=== PATIENT | female | born 1935 | race Caucasian/White ===

== ENCOUNTER 2017-01-02 07:35 | Emergency (ER) | payer MEDICARE ==
[2017-01-02 08:22] VITALS: BP 138/62
--- NOTE | 2017-01-02 08:30 | UC ---
Lower Extremity/Ankle HPI - HPI Summary HPI Summary: PATIENT IS A 81YO WHO PRESENTS TO WITH CC OF RIGHT LEG EDEMA, REDNESS AND WARMTH. SHE HAD BALLOON ANGIOSPLASTY PERFORMED ON THE RIGHT FEMORAL ARTERY ON D/T CLAUDICATION. ANOTHER BALLOON ANGIOPLASTY AGAIN ON 12/15 ON THE LEFT FEMORAL ARTERY. BOTH OCCURRED WITHOUT COMPLICATIONS. SHE STATES IMMEDIATELY AFTER SURGERY, SHE WAS ABLE TO WALK WITHOUT PAIN, HOWEVER SHE DEVELOPED EDEMA IN THE RIGHT LOWER EXTREMITY EXTENDING TO THE MID-CALF. HER SURGEON STATED THAT WAS A NORMAL RESPONSE AFTER SURGERY AND PRESCRIBED 25MG HYDROCHLOROTHIAZIDE. THE EDEMA DID NOT REDUCE WITH THE MEDICATION. SHE ARRIVES TODAY D/T LAST EVENING SHE DEVELOPED REDNESS AND WARMTH AND WAS CONCERNED OVER CELLULITIS. SHE REMAINS ON BABY ASPIRIN DAILY. SHE DENIES BEDREST S/P SURGERY. SHE IS NOT ON OTHER BLOOD THINNERS AND CONTINUES TO DENY PAIN IN THE RIGHT CALF. SHE HAS NO HISTORY OF DVT'S. PMHx INCLUDES COPD TO WHICH SHE TAKES SYMBICORT. SHE DENIES USE OF STOCKINGS OR COMPRESSION SOCKS. DENIES FEVER OR MALAISE. OTHERWISE FEELING WELL AND HEALTHY. - History of Current Complaint Chief Complaint: UCLowerExtremity Stated Complaint: LEG COMPLAINT Time Seen by Provider: 01/02/17 08:08 Hx Obtained From: Patient Hx Last Menstrual Period: post menopaus ?: No Onset/Duration: Sudden Onset Severity Initially: Mild Severity Currently: Mild Pain Intensity: 0 Pain Scale Used: 0-10 Numeric Aggravating Factor(s): Nothing Alleviating Factor(s): Nothing Able to Bear Weight: Yes - Risk Factors Gout Risk Factors: Age Over 40, Hyperlipidemia, Peripherial Vascular Disease DVT Risk Factors: Recent Surgery Septic Arthritis Risk Factor: Extremes of Age - Allergies/Home Medications Allergies/Adverse Reactions: Allergies Allergy/AdvReac Type Severity Reaction Status Date / Time Cilostazol Allergy Itching Verified 01/02/17 08:03 Home Medications: Home Medications Hydrochlorothiazide [Microzide-] 01/02/17 [History] PMH/Surg Hx/FS Hx/Imm Hx Previously Healthy: No - HTN, ASHTMA, COPD Endocrine History Of: Reports: Thyroid Disease Denies: Diabetes Cardiovascular History Of: Reports: Hypertension Denies: Cardiac Disorders, Pacemaker/ICD Respiratory History Of: Reports: COPD - emphysema, Asthma, Bronchitis - NONE [id number], WITH "COLD" USUALLY GETS IT GI/ History Of: Denies: Ulcer, Renal Disease Cancer History Of: Denies: Breast Cancer - Surgical History Surgical History: Yes Surgery Procedure, Year, and Place: hysterectomy,fx right hip REPLACEMENT 2010. baloon angioplasty in November; I and D December 15 - Family History Known Family History: Positive: Cardiac Disease, Hypertension - Social History Occupation: Retired Lives: Alone Alcohol Use: Daily Alcohol Amount: 2-3 DRINKS/WEEK Substance Use Type: None Smoking Status (MU): Former Smoker Type: Cigarettes Amount Used/How Often: 1PPD 40 + YEARS Have You Smoked in the Last Year: No When Did the Patient Quit Smoking/Using Tobacco: 1998 - Immunization History Most Recent Influenza Vaccination: 2013 Most Recent Tetanus Shot: unknown Most Recent Pneumonia Vaccination: 2013 Review of Systems Constitutional: Negative Skin: Other - ERYTHEMA, SWELLING AND WARMTH OVER RIGHT LOWER EXTREMITY WITHOUT PAIN OR CLAUDICATION. Eyes: Negative Respiratory: Negative Cardiovascular: Negative Motor: Negative Neurovascular: Negative Musculoskeletal: Negative Neurological: Negative All Other Systems Reviewed And Are Negative: Yes Physical Exam Triage Information Reviewed: Yes Appearance: Well-Appearing, Well-Nourished Vital Signs: Initial Vital Signs Temp 97.7 F 01/02/17 07:55 Pulse 79 01/02/17 07:55 Resp 16 01/02/17 07:55 BP 138/62 01/02/17 07:55 Pulse Ox 98 01/02/17 07:55 Vital Signs Reviewed: Yes Eye Exam: Normal Eyes: Positive: Conjunctiva Clear Neck exam: Normal Neck: Positive: Supple, No Lymphadenopathy Respiratory Exam: Normal Respiratory: Positive: Chest non-tender, Lungs clear Cardiovascular Exam: Normal Cardiovascular: Positive: RRR Musculoskeletal Exam: Normal Musculoskeletal: Positive: Strength Intact Neurological Exam: Normal Neurological: Positive: Alert Psychological Exam: Normal Psychological: Positive: Normal Response To Family Skin: Positive: Other - ERYTHEMA, WARMTH, EDEMA THROUGHOUT RIGHT LOWER EXTREMITY WITHOUT PAIN OR CLAUDICATION. Lower Extremity Course/Dx - Course Course Of Treatment: ERYTHEMA, WARMTH, EDEMA THROUGHOUT RIGHT LOWER EXTREMITY WITHOUT PAIN OR CLAUDICATION. EDEMA PRESENT IMMEDIATELY S/P SURGERY ON 12/09 AND REMAINS. YESTERDAY DEVELOPED WARMTH AND REDNESS OVER AREA. PATIENT REMAINS ON BABY ASPIRIN AND WAS MOBILE IMMEDIATELY FOLLOWING SURGERY. DENIES PREVIOUS DVT'S AND DENIES PAIN IN CALF OR CLAUDICATION. LOW SUSPICIAN FOR DVT, ALTHOUGH THIS WAS DISCUSSED WITH PATIENT A POSSIBILITY. SHE HAS NOT BEEN USING COMPRESSION STOCKINGS AND HAS HAD A FOLLOW UP WITH SURGERY AFTER ANGIOPLASTY WHO STATED EDEMA WAS NORMAL S/P PROCEDURE. DENIES FEVER. BLOOD WORK NOT OBTAINED D/T AFEBRILE AND FEELING WELL. WILL TREAT FOR POSSIBLE CELLULITIS WITH KEFLEX AND CLOSE FOLLOW UP WITH PCP ON WEDNESDAY MORNING FOR FURTHER EVALUATION. PATIENT IS OK WITH PLAN AND OK FOR DISCHARGE. - Differential Dx/Diagnosis Differential Diagnosis/HQI/PQRI: Cellulitis, DVT, Infection, Phlebitis Provider Diagnoses: LOWER EXTREMITY EDEMA; CELLULITIS Discharge - Discharge Plan Condition: Stable Disposition: HOME Prescriptions: Cephalexin CAP* [Keflex CAP*] 500 mg PO QID #28 cap Patient Education Materials: Cellulitis (ED), Edema (ED) Referrals: Gustavo Wells MD [Primary Care Provider] - Additional Instructions: Follow up with PCP on Wednesday. If you develop fevers, fatigue, pain in the leg, feeling ill or worsening swelling, redness, drainage or red streaking up from the calf, come back to or go to the ED immediately. Obtain compression socks. Elevate legs as much as possible. Continue with all your medications as prescribed.
== END 2017-01-02 08:30 | disposition home or self-care (01) ==
LOC: UCEAST 07:35
DX: R60.0 Localized edema (principal); L03.115 Cellulitis of right lower limb; B96.89 Other specified bacterial agents as the cause of diseases classified elsewhere
CPT/HCPCS: 99212; G0463

== ENCOUNTER 2017-06-24 07:57 | Emergency (ER) | payer MEDICARE ==
[2017-06-24] MEDS ORDERED: Albuterol 2.5 MG/3 ML NEB.SOL* (0.083%) INH ONE (08:52)
[2017-06-24] MEDS ORDERED: Ipratropium 0.5MG/2.5ML NEB* 0.5 MG/2.5 ML NEB.SOLN INH ONE (08:52)
[2017-06-24 09:20] VITALS: BP 135/63
--- NOTE | 2017-07-09 09:15 | UC ---
Evelio Sims Thomas, scribed for Karina Tucker DO on 06/24/17 at 0843 . Respiratory Complaint HPI - HPI Summary HPI Summary: The pt is an 82 y/o F with a Hx of COPD presenting to [facility] c/o a cough with green production that began yesterday. She has pain with coughing. The cough is aggravated by nothing and is alleviated by nothing. 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 She is on Spiriva and Albuterol. Pt additionally c/o chronic postnasal drip. Pt denies SOB, CP, sinus congestion, ear pain, sore throat, N/V, abd pain, dysuria, recent falls, confusion, and rashes. Pt denies recent falls or confusion. She has not needed to take steroids for her COPD. - History of Current Complaint Chief Complaint: UCRespiratory Stated Complaint: CONGESTION Hx Obtained From: Patient Hx Last Menstrual Period: post menopaus Onset/Duration: Lasting Days - 1, Still Present Timing: Constant Character: Cough: Productive - green Aggravating Factors: Nothing Alleviating Factors: Nothing Associated Signs And Symptoms: Negative: Dyspnea, Fever - Allergies/Home Medications Allergies/Adverse Reactions: Allergies Allergy/AdvReac Type Severity Reaction Status Date / Time Cilostazol Allergy Itching Verified 01/02/17 08:03 PMH/Surg Hx/FS Hx/Imm Hx Previously Healthy: No Endocrine History: Thyroid Disease Cardiovascular History: Cardiac Disease, Hypertension Other Cardiovascular History: PVD Respiratory History: COPD Psychological History: Anxiety - Surgical History Surgical History: Yes Surgery Procedure, Year, and Place: hysterectomy,fx right hip REPLACEMENT 2010. baloon angioplasty in November; I and D December 15 - Family History Known Family History: Positive: Cardiac Disease, Hypertension - Social History Alcohol Use: Daily Alcohol Amount: 2-3 DRINKS/WEEK Substance Use Type: None Smoking Status (MU): Former Smoker Type: Cigarettes Amount Used/How Often: 1PPD 40 + YEARS Have You Smoked in the Last Year: No When Did the Patient Quit Smoking/Using Tobacco: 1998 - Immunization History Most Recent Influenza Vaccination: 05/02 Most Recent Tetanus Shot: unknown Most Recent Pneumonia Vaccination: 2013 Review of Systems Constitutional: Other - NEGATIVE: fever ENT: Other - Chronic postnasal drip. Respiratory: Cough Is Patient Immunocompromised?: No All Other Systems Reviewed And Are Negative: Yes Physical Exam Triage Information Reviewed: Yes Appearance: Well-Appearing, No Pain Distress, Well-Nourished Vital Signs: Initial Vital Signs Temp 97.9 F 06/24/17 08:02 Pulse 76 06/24/17 08:02 Resp 18 06/24/17 08:02 BP 144/54 06/24/17 08:02 Pulse Ox 96 06/24/17 08:02 Vital Signs Reviewed: Yes Eyes: Positive: Conjunctiva Clear. Negative: Discharge ENT: Positive: Hearing grossly normal. Negative: Muffled voice Neck exam: Normal Neck: Positive: Supple Respiratory: Positive: No respiratory distress, No accessory muscle use, Other: - She has diffuse tight wheezing. Cardiovascular: Positive: RRR, No Murmur Musculoskeletal Exam: Normal Neurological: Positive: Alert, Muscle Tone Normal Psychological Exam: Normal Psychological: Positive: Age Appropriate Behavior Skin Exam: Normal Skin: Positive: Other - Warm, dry, normal color UC Diagnostic Evaluation - Laboratory O2 Sat by Pulse Oximetry: 96 Re-Evaluation - Re-Evaluation First Eval Re-Evaluation Time: 09:32 Change: Improved Comment: She is satting 95. Wheezing is improved but not completely resolved. Respiratory Course/Dx - Course Course Of Treatment: Medications reviewed this visit. High blood pressure noted. - Differential Dx/Diagnosis Provider Diagnoses: COPD exacerbation, bronchitis, elevated blood pressure under poor control Discharge - Discharge Plan Condition: Stable Disposition: HOME Prescriptions: DOXYcycline CAP(*) [DOXYcycline 100MG CAP(*)] 100 mg PO BID #20 cap predniSONE TAB* [Deltasone TAB*] 40 mg PO DAILY #10 tab Patient Education Materials: Acute Bronchitis (ED), COPD (Chronic Obstructive Pulmonary Disease) (ED) Referrals: Gustavo Wells MD [Primary Care Provider] - 1 Day Additional Instructions: DOXYCYCLINE: Doxycycline (Vibramycin, Doryx) is an antibiotic of the tetracycline family. This type of drug is useful for infections of the respiratory tract and genital tract, and is sometimes used for intestinal infections. Unlike most tetracyclines, doxycycline can be taken with food. It is longer acting, and (usually) less prone to side effects than regular tetracycline. Tetracycline antibiotics can stain immature teeth and SHOULD NOT BE TAKEN BY CHILDREN, NURSING MOTHERS, OR WOMEN. Tetracyclines can make you more prone to sunburn. Abdominal cramping, nausea, and diarrhea are occasional side effects. Women may experience vaginal yeast infections. Call the doctor at once if you develop hives, itching, shortness of breath , or lightheadedness. DISCUSSED, DOXY ALSO INCREASES YOUR RISK OF SUNBURN. COVER UP WHEN YOU GO OUTSIDE. ANYTIME YOU TAKE AN ANTIBIOTIC, IT IS IMPORTANT TO REPLENISH THE BODY'S SUPPLY OF "GOOD BACTERIA." YOU CAN GET GOOD BACTERIA FROM HIGH QUALITY CULTURED FOODS SUCH LOCAL YOGURT, SOUR KRAUT, FABIANO CAROL, NATURALLY FERMENTED PICKLES AND PROBIOTIC DRINKS. YOU CAN ALSO GET GOOD BACTERIA FROM A PROBIOTIC SUPPLEMENT. CORTICOSTEROID MEDICATION: You have been given a medicine of the cortisone class. This medication is used to control inflammation or allergy. It is usually only given for a short period of time, until the acute process subsides. There are usually no side effects from short-term use of cortisone-like medications. Some persons feel an increased sense of well-being and are not sleepy at bedtime. Long-term use of cortisone medications is best avoided, unless required for a severe condition. If your condition does not remit, or relapses after the course of corticosteroid medication, you should consult your physician. Contact the physician if you develop lightheadedness, black or tarry stools , swelling of the legs, or significant rapid change in weight. INHALED BRONCHODILATORS:YOU CAN USE THIS MED EVERY 4 HOURS WHILE AWAKE FOR SHORTNESS OF BREATH AND WHEEZING You have received a prescription for an inhaled bronchodilator -- a medication which stimulates the airways in the lung to dilate. This improves the flow of air in asthma, bronchitis, and emphysema. These medicines have some similarity to adrenaline, and can cause similar side effects: shakiness, racing heart, and a sense of nervousness. These side effects decrease with time. Contact your doctor if these side effects are severe. Do not over-use the medicine. Too-frequent use of the inhaler may make it ineffective. Call your doctor if the inhaler is not controlling your symptoms at the prescribed doses. Your blood pressure was elevated at this visit. That does not mean you have hypertension, it is probably due to your current condition. Please follow up with your primary care provider. The documentation as recorded by the Evelio acevedo Thomas accurately reflects the service I personally performed and the decisions made by me, Karina Tucker DO.
== END 2017-06-24 09:50 | disposition home or self-care (01) ==
LOC: UCEAST 07:57
DX: J44.1 Chronic obstructive pulmonary disease with (acute) exacerbation (principal); R03.0 Elevated blood-pressure reading, without diagnosis of hypertension; E07.9 Disorder of thyroid, unspecified; I10 Essential (primary) hypertension; I73.9 Peripheral vascular disease, unspecified; F41.9 Anxiety disorder, unspecified; Z90.710 Acquired absence of both cervix and uterus; Z96.641 Presence of right artificial hip joint; Z87.891 Personal history of nicotine dependence
CPT/HCPCS: 99212; G0463; J7644

== ENCOUNTER 2017-11-18 08:03 | Emergency (ER) | payer MEDICARE ==
[2017-11-18 08:11] VITALS: BP 138/67
[2017-11-18] MEDS ORDERED: Albuterol/Ipratropium NEB.SOL* Albuterol 2.5 MG/Ipratropium 0.5 MG 3 ML INH ONE (08:12)
[2017-11-18] MEDS ORDERED: Albuterol/Ipratropium NEB.SOL* Albuterol 2.5 MG/Ipratropium 0.5 MG 3 ML ONE (08:12)
[2017-11-18] MEDS ORDERED: methylPREDNISolone 125 MG* 2 ML VIAL IV ONE (08:14)
--- NOTE | 2017-11-18 08:30 | UC ---
Respiratory Complaint HPI - HPI Summary HPI Summary: 82 yo WF h/o COPD/emphysema, hypothyroidism, HTN p/w worsening dyspnea x 2 days in associated with cough with yellow green sputum, NOT on home 02, thinks her baseline is in low 90's, denies f/c but feels that she is becoming " more tired " - History of Current Complaint Chief Complaint: UCRespiratory Stated Complaint: SHORTNESS OF BREATH Time Seen by Provider: 11/18/17 08:11 Hx Obtained From: Patient Hx Last Menstrual Period: post menopaus ?: No Onset/Duration: Lasting Days, Lasting Weeks, Still Present Severity Initially: Moderate Severity Currently: Moderate Pain Intensity: 0 Character: Cough: Productive Alleviating Factors: Bronchodilator Associated Signs And Symptoms: Positive: Dyspnea - Allergies/Home Medications Allergies/Adverse Reactions: Allergies Allergy/AdvReac Type Severity Reaction Status Date / Time cilostazol Allergy Itching Verified 11/18/17 08:05 Home Medications: Home Medications Hydrochlorothiazide TAB* [Hydrodiuril TAB*] 1 tab PO DAILY 11/18/17 [History Confirmed 11/18/17] PMH/Surg Hx/FS Hx/Imm Hx Previously Healthy: No Endocrine History: Hypothyroidism Cardiovascular History: Hypertension Respiratory History: COPD - Surgical History Surgical History: Yes Surgery Procedure, Year, and Place: hysterectomy,fx right hip REPLACEMENT 2010. baloon angioplasty in November; I and D December 15 - Family History Known Family History: Positive: Cardiac Disease, Hypertension - Social History Alcohol Use: Daily Alcohol Amount: 2-3 DRINKS/WEEK Substance Use Type: None Smoking Status (MU): Former Smoker Type: Cigarettes Amount Used/How Often: 1PPD 40 + YEARS Have You Smoked in the Last Year: No When Did the Patient Quit Smoking/Using Tobacco: 1998 - Immunization History Most Recent Influenza Vaccination: 05/02 Most Recent Tetanus Shot: unknown Most Recent Pneumonia Vaccination: 2013 Review of Systems Constitutional: Negative Skin: Negative Eyes: Negative ENT: Negative Respiratory: Shortness Of Breath, Cough Cardiovascular: Negative Gastrointestinal: Negative Genitourinary: Negative Motor: Negative Neurovascular: Negative Musculoskeletal: Negative Neurological: Negative Psychological: Negative All Other Systems Reviewed And Are Negative: Yes Physical Exam Triage Information Reviewed: Yes Vital Signs: Initial Vital Signs Temp 37.6 C 11/18/17 08:08 Pulse 95 11/18/17 08:08 Resp 26 11/18/17 08:08 BP 138/67 04/05/18 08:08 Pulse Ox 87 11/18/17 08:08 Eye Exam: Normal ENT Exam: Normal Dental Exam: Normal Neck exam: Normal Neck: Positive: 1 Respiratory: Positive: Decreased breath sounds. Negative: Crackles, Rhonchi, Stridor Cardiovascular Exam: Normal Abdominal Exam: Normal Musculoskeletal Exam: Normal Neurological Exam: Normal Psychological Exam: Normal Skin Exam: Normal UC Diagnostic Evaluation - Laboratory O2 Sat by Pulse Oximetry: 87 Respiratory Course/Dx - Course Course Of Treatment: Per nurse pt was 86% on RA on arrrival, O2sat improved on 2L to 99%, Duoneb and solumedrol administered and ambulance called to take pt to ED for acute COPD exacerbation and acute hypoxia, further evaluation and intervention. Discussed case with Dr Navarro in ED and is aware pt is coming - Differential Dx/Diagnosis Differential Diagnosis/HQI/PQRI: Bronchitis, Exacerbation Of COPD, Lower Resp Infection Provider Diagnoses: Hypoxia. COPD exacerbation Discharge - Sign-Out/Discharge Documenting (check all that apply): Discharge - Discharge Plan Condition: Guarded Disposition: [facility] Patient Education Materials: COPD (Chronic Obstructive Pulmonary Disease) (ED) Referrals: Gustavo Wells MD [Primary Care Provider] - Additional Instructions: Go to ER [place], called ambulance - Billing Disposition and Condition Condition: GUARDED Disposition: EMTALA
== END 2017-11-18 08:25 | disposition short-term general hospital (02) ==
LOC: UCEAST 08:03
DX: R09.02 Hypoxemia (principal); J44.1 Chronic obstructive pulmonary disease with (acute) exacerbation; E03.9 Hypothyroidism, unspecified; I10 Essential (primary) hypertension; Z96.641 Presence of right artificial hip joint; Z88.8 Allergy status to other drugs, medicaments and biological substances; Z87.891 Personal history of nicotine dependence
CPT/HCPCS: 96372; 96374; 99213; A9270-GY; G0463; J2930

== ENCOUNTER 2017-11-18 08:43 | Emergency (ER) | payer MEDICARE ==
[2017-11-18] MEDS ORDERED: Albuterol/Ipratropium NEB.SOL* Albuterol 2.5 MG/Ipratropium 0.5 MG 3 ML INH ONE (09:23)
[2017-11-18 09:42] LABS: ABS Basophils 0 10^3/ul (0-0.2); ABS Eosinophils 0.1 10^3/ul (0-0.6); ABS Lymphocytes 0.7 10^3/ul (1.0-4.8); ABS Monocytes 0.7 10^3/ul (0-0.8); ABS Neutrophils 6.4 10^3/ul (1.5-7.7); ABS Nucleated RBC 0 10^3/ul; Eosinophil % 1.8 % (0-6); Hematocrit 35 % (35-47); Lymphocyte % 8.3 % (25-47); Mean Corpuscular HGB Conc 34 g/dl (31-36); Mean Corpuscular Hemoglobin 34 pg (27-31); Mean Corpuscular Volume 100 fL (80-97); Mean Platelet Volume 7.3 um3 (7.4-10.4); Nucleated Red Blood Cells % 0.1; Platelet Count 211 10^3/ul (150-450); Red Blood Count 3.53 10^6/ul (4.0-5.4); Red Cell Distribution Width 13 % (10.5-15)
--- NOTE | 2017-11-18 09:54 | RAD ---
Indication: Shortness of breath. Comparison is made with previous exam dated June 19, 2014. 2 views of the chest and shape no mediastinal shift. Hyperinflated lung hankins are noted. No evidence of alveolar consolidation is noted. Chronic changes are noted in the lung bases. IMPRESSION: No definite pneumonia is identified.
[2017-11-18 10:05] LABS: EGFR Non-African American 51.6 (>60)
[2017-11-18] MEDS ORDERED: DOXYcycline CAP(*) 100 MG PO ONE (11:10)
[2017-11-18 11:50] VITALS: BP 126/62
--- NOTE | 2017-11-23 12:19 | ED ---
Jonathan Sims Stephanie, scribed for Tarik Navarro MD on 11/18/17 at 0927 . Shortness of Breath - HPI Summary HPI Summary: The pt is an 82 y/o F presenting to the ED with c/o SOB that began on 11/17/17 at 21:00. Symptoms include productive cough (green/yellow sputum) and chills. The pt denies CP. The pts states she had to use him home O2 which made her feel better. The pt went to today where Dr. Lu administered albuterol and solumedrol. - History of Current Complaint Chief Complaint: EDShortnessOfBreath Time Seen by Provider: 11/18/17 08:52 Hx Obtained From: Patient Onset/Duration: Gradual Onset, Lasting Days - 1, Still Present Timing: Constant Current Severity: Mild Dyspnea At: Exertion Aggrevating Factors: Movement Alleviating Factors: Bronchodilators Associated Signs & Symptoms: Cough (Productive) - green/yellow sputum, Chills - Allergy/Home Medications Allergies/Adverse Reactions: Allergies Allergy/AdvReac Type Severity Reaction Status Date / Time cilostazol Allergy Itching Verified 11/18/17 08:05 Home Medications: Home Medications Alendronate (NF) [Fosamax (NF)] 70 mg PO WEEKLY 11/18/17 [History Confirmed 12/31] Atorvastatin* [Lipitor*] 40 mg PO DAILY 11/18/17 [History Confirmed 11/18/17] Levothyroxine TAB* [Synthroid TAB*] 50 mcg PO DAILY 11/18/17 [History Confirmed 11/18/17] Losartan TAB* [Cozaar TAB*] 100 mg PO DAILY 11/18/17 [History Confirmed 11/18/17 ] Tiotropium CAP.INH* [Spiriva CAP.INH*] 1 cap.inh INH DAILY 11/18/17 [History Confirmed 11/18/17] amLODIPine TAB* [Norvasc 5 mg TAB*] 10 mg PO DAILY 11/18/17 [History Confirmed 11/18/17] PMH/Surg Hx/FS Hx/Imm Hx Endocrine/Hematology History: Reports: Hx Thyroid Disease Denies: Hx Diabetes Cardiovascular History: Reports: Hx Angina, Hx Hypertension, 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 Denies: Hx Pacemaker/ICD Comment Only: Other Cardiovascular Problems/Disorders - hyperlipidemia Respiratory History: Reports: Hx Asthma, 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 baloon angioplasty in November; I and D December 15 Hx Anesthesia Reactions: No - Immunization History Date of Tetanus Vaccine: pt unable to state Date of Influenza Vaccine: pt unable to state Infectious Disease History: No Infectious Disease History: Reports: Hx Shingles Denies: Hx Clostridium Difficile, Hx Hepatitis, Hx Human Immunodeficiency Virus (HIV), Hx of Known/Suspected MRSA, Hx Tuberculosis, Hx Known/Suspected VRE , Hx Known/Suspected VRSA, History Other Infectious Disease, Traveled Outside the [place] in Last 30 Days - Family History Known Family History: Positive: Cardiac Disease, Hypertension - Social History Occupation: Retired Lives: With Family Alcohol Use: Daily Alcohol Amount: 2-3 DRINKS/WEEK Hx Substance Use: No Substance Use Type: Reports: None Hx Tobacco Use: Yes Smoking Status (MU): Former Smoker Type: Cigarettes Amount Used/How Often: 1PPD 40 + YEARS Have You Smoked in the Last Year: No Review of Systems Positive: Chills. Negative: Fever Negative: Erythema Negative: Sore Throat Negative: Chest Pain Positive: Shortness Of Breath, Cough Negative: Abdominal Pain, Vomiting, Nausea Negative: dysuria, hematuria Negative: Myalgia, Edema Negative: Rash Neurological: Other - Negative: dizziness All Other Systems Reviewed And Are Negative: Yes Physical Exam - Summary Physical Exam Summary: Constitutional: Well-developed, Well-nourished, Alert. (-) Distressed Skin: Warm, Dry HENT: Normocephalic; Atraumatic Eyes: Conjunctiva normal Neck: Musculoskeletal ROM normal neck. (-) JVD, (-) Stridor, (-) Tracheal deviation Cardio: Rhythm regular, rate normal, Heart sounds normal; Intact distal pulses; The pedal pulses are 2+ and symmetric. Radial pulses are 2+ and symmetric. (-) Murmur Pulmonary/Chest wall: Effort normal. (-) Respiratory distress, (-) Wheezes, (-) Rales, diminished breath sounds Abd: Soft, (-) Tenderness, (-) Distension, (-) Guarding, (-) Rebound Musculoskeletal: (-) Edema Lymph: (-) Cervical adenopathy Neuro: Alert, Oriented x3 Psych: Mood and affect Normal Triage Information Reviewed: Yes Vital Signs On Initial Exam: Initial Vitals Temp Pulse Resp BP Pulse Ox 98.9 F 85 17 143/58 91 11/18/17 09:00 11/18/17 09:00 11/18/17 09:00 11/18/17 09:00 11/18/17 09:00 Vital Signs Reviewed: Yes Diagnostics - Vital Signs Vital Signs Temp Pulse Resp BP Pulse Ox 11/18/17 09:00 98.9 F 85 17 143/58 91 - Laboratory Lab Results: Lab Results 11/18/17 11/18/17 11/18/17 Range/Units 09:25 09:25 09:25 WBC 8.0 (3.5-10.8) 10^3/ul RBC 3.53 L (4.0-5.4) 10^6/ul Hgb 12.0 (12.0-16.0) g/dl Hct 35 (35-47) % MCV 100 H (80-97) fL MCH 34 H (27-31) pg MCHC 34 (31-36) g/dl RDW 13 (10.5-15) % Plt Count 211 (150-450) 10^3/ul MPV 7.3 L (7.4-10.4) um3 Neut % (Auto) 80.6 (38-83) % Lymph % (Auto) 8.3 L (25-47) % [place]range % (Auto) 8.9 H (0-7) % Eos % (Auto) 1.8 (0-6) % Baso % (Auto) 0.4 (0-2) % Absolute Neuts (auto) 6.4 (1.5-7.7) 10^3/ul Absolute Lymphs (auto) 0.7 L (1.0-4.8) 10^3/ul Absolute Monos (auto) 0.7 (0-0.8) 10^3/ul Absolute Eos (auto) 0.1 (0-0.6) 10^3/ul Absolute Basos (auto) 0 (0-0.2) 10^3/ul Absolute Nucleated RBC 0 10^3/ul Nucleated RBC % 0.1 Sodium 136 L (139-145) mmol/L Potassium 4.4 (3.5-5.0) mmol/L Chloride 102 (101-111) mmol/L Carbon Dioxide 24 (22-32) mmol/L Anion Gap 10 (2-11) mmol/L BUN 25 H (6-24) mg/dL Creatinine 1.02 H (0.51-0.95) mg/dL Est GFR ( Amer) 66.4 (>60) Est GFR (Non-Af Amer) 51.6 (>60) BUN/Creatinine Ratio 24.5 H (8-20) Glucose 106 H (70-100) mg/dL Lactic Acid 0.9 (0.5-2.0) mmol/L Calcium 9.9 (8.6-10.3) mg/dL Total Bilirubin 0.70 (0.2-1.0) mg/dL AST 15 (13-39) U/L ALT 12 (7-52) U/L Alkaline Phosphatase 42 (34-104) U/L Troponin I 0.00 (<0.04) ng/mL Total Protein 6.9 (6.4-8.9) g/dL Albumin 3.9 (3.2-5.2) g/dL Globulin 3.0 (2-4) g/dL Albumin/Globulin Ratio 1.3 (1-3) Result Diagrams: 11/18/17 09:25 11/18/17 09:25 Lab Statement: Any lab studies that have been ordered have been reviewed, and results considered in the medical decision making process. - Radiology CXR Xray Interpretation: No Acute Changes Radiology Interpretation Completed By: Radiologist - No definite pneumonia is identified. ED physician has reviewed this report. - EKG 09:05 Cardiac Rate: NL EKG Rhythm: Sinus Rhythm - 80 BPM EKG Interpretation: No STEMI Re-Evaluation - Re-Evaluation First Eval Re-Evaluation Time: 11:12 Change: Unchanged - The pts SOB resolved after nebulizer treatment. ED physician informed her she needs supplemental O2 however, the pt does not want to stay in hospital. ED physician informed the pt that the O2 company will not honor ED recommendations for O2. The pt states she wants her PCP to arrange O2. ED physician sent abx prescriptions to pharmacy. Course/Dx - Course Course Of Treatment: At 11:04, ED physician spoke to Dr. Hunt. The pts SOB resolved after nebulizer treatment. ED physician informed her she needs supplemental O2 however, the pt does not want to stay in hospital. ED physician informed the pt that the O2 company will not honor ED recommendations for O2. The pt states she wants her PCP to arrange O2. ED physician sent abx prescriptions to pharmacy. - Diagnoses Provider Diagnoses: COPD exacerbation, Hypoxemia - Physician Notifications Discussed Care of Patient With: Dara Hunt - Plan to admit as inpatient for supplemental O2. Time Discussed With Above Provider: 11:04 - Critical Care Time Critical Care Time: 30-74 min - 35 min CCT Discharge - Sign-Out/Discharge Documenting (check all that apply): Discharge - Discharge Plan Condition: Stable Disposition: AGAINST MEDICAL ADVICE Prescriptions: DOXYcycline CAP(*) [DOXYcycline 100MG CAP(*)] 100 mg PO BID #14 cap predniSONE TAB* [Deltasone TAB*] 50 mg PO DAILY #5 tab Referrals: Gustavo Wells MD [Primary Care Provider] - - Billing Disposition and Condition Condition: STABLE Disposition: AMA The documentation as recorded by the Jonathan acevedo Stephanie accurately reflects the service I personally performed and the decisions made by , Tarik Navarro MD.
== END 2017-11-18 11:45 | disposition left against medical advice (07) ==
LOC: ED 08:43
DX: J44.1 Chronic obstructive pulmonary disease with (acute) exacerbation (principal); R09.02 Hypoxemia; R05 Cough; R06.02 Shortness of breath; Z87.891 Personal history of nicotine dependence; E03.9 Hypothyroidism, unspecified; I10 Essential (primary) hypertension; Z96.641 Presence of right artificial hip joint
CPT/HCPCS: 36415; 71046; 80053; 83605; 84484; 85025; 87040; 93005; 94640; 99282; A9270-GY

== ENCOUNTER 2018-06-20 09:43 | Emergency (ER) | payer MEDICARE ==
[2018-06-20 10:05] VITALS: BP 130/60
--- NOTE | 2018-06-20 10:39 | UC ---
Lower Extremity/Ankle HPI - HPI Summary HPI Summary: 83-year-old woman comes in today with a chief complaint of right leg swelling. She noticed it this morning. She does have a right hip replacement which was done about 2 years ago. She also reports some vascular procedure in her right leg at one time. 2 days ago she had sudden onset of pain in the right upper thigh hip area. The pain was quite bad she's had a hard time walking the walking made the pain worse. The pain continued yesterday but gradually improved. She took acetaminophen and she wasn't sure if that helped or not. This morning when she woke up she noticed the right leg was swollen. The right upper leg hip area pain is minimal at this time. The lower leg does not hurt she has no numbness or paresthesias. No prior histories of blood clots. The right lower leg is a little bit red which is more than the left leg. No fevers or chills feels well otherwise. - History of Current Complaint Chief Complaint: UCLowerExtremity Stated Complaint: LEG SWELLING Time Seen by Provider: 06/20/18 10:19 Hx Last Menstrual Period: post menopaus Pain Intensity: 4 - Allergies/Home Medications Allergies/Adverse Reactions: Allergies Allergy/AdvReac Type Severity Reaction Status Date / Time cilostazol Allergy Itching Verified 06/20/18 10:05 PMH/Surg Hx/FS Hx/Imm Hx Endocrine History: Hypothyroidism - Surgical History Surgical History: Yes Surgery Procedure, Year, and Place: hysterectomy,fx right hip REPLACEMENT 2010. baloon angioplasty in November; I and D December 15 - Family History Known Family History: Positive: Cardiac Disease, Hypertension - Social History Alcohol Use: Daily Alcohol Amount: 2-3 DRINKS/WEEK Substance Use Type: None Smoking Status (MU): Former Smoker Type: Cigarettes Amount Used/How Often: 1PPD 40 + YEARS Have You Smoked in the Last Year: No When Did the Patient Quit Smoking/Using Tobacco: 1998 - Immunization History Most Recent Influenza Vaccination: 05/02 Most Recent Tetanus Shot: unknown Most Recent Pneumonia Vaccination: 2013 Review of Systems Constitutional: Negative Skin: Rash Eyes: Negative ENT: Negative Respiratory: Negative Cardiovascular: Negative Gastrointestinal: Negative Motor: Negative Neurovascular: Negative Musculoskeletal: Other: - SEE HPI Neurological: Negative Psychological: Negative Is Patient Immunocompromised?: No All Other Systems Reviewed And Are Negative: Yes Physical Exam Triage Information Reviewed: Yes Appearance: Well-Appearing, No Pain Distress, Well-Nourished Vital Signs: Initial Vital Signs Temp 97.8 F 06/20/18 10:02 Pulse 76 06/20/18 10:02 Resp 16 06/20/18 10:02 BP 130/60 06/20/18 10:02 Pulse Ox 98 06/20/18 10:02 Vital Signs Reviewed: Yes Eye Exam: Normal Neck exam: Normal Neck: Positive: Supple Respiratory Exam: Normal Respiratory: Positive: Lungs clear, Normal breath sounds, No respiratory distress Cardiovascular: Positive: RRR Musculoskeletal: Positive: Strength Intact, ROM Intact, Other: - The right leg has some edema them early in the lower leg and into the foot. There is more edema in the right leg than the left leg. The left leg just has a trace of edema in the foot. The calf is nontender to palpation in the knee has full range of motion of the hip has full range of motion and they're all nontender to palpation. Normal capillary refill normal pulses dorsalis pedis and posterior tibials. Neurological: Positive: Alert, Muscle Tone Normal Psychological Exam: Normal Psychological: Positive: Normal Response To Family, Age Appropriate Behavior Skin: Positive: Other - Both lower extremity is are mildly erythematous the right lower extremity is more erythematous than the left. The skin is not hot to touch. No skin break found. Lower Extremity Course/Dx - Course Course Of Treatment: Order Information: HIP RIGHT 2 VIEWS AND PELVIS. Accession Number: [id number]. CPT: 95045. INDICATION: Right hip pain. COMPARISON: Correlation is made with a prior x-ray study of the right hip from February 022010 and prior intraoperative study of the right hip from February 02, 2011. TECHNIQUE: An AP view of the pelvis and frontal and lateral views of the right hip were. obtained. FINDINGS: There is an old impacted right subcapital femoral neck fracture which appears. healed. There are 3 surgical screws spanning the fracture site. No acute fracture is seen. There is mild to moderate bilateral osteoarthritic change in the hips. IMPRESSION: 1. MILD TO MODERATE BILATERAL OSTEOARTHRITIC CHANGE IN THE HIPS. 2. OLD RIGHT SUBCAPITAL FEMORAL NECK FRACTURE AND POSTSURGICAL CHANGES. . <Electronically signed by Jesse Mcginnis MD in [facility]> 06/20/18 1128. Order Information: VL LOWER EXT VEINS RIGHT. Accession Number: [id number]. CPT: 46259. Indication: Right leg edema. Duplex Doppler sonography of the deep venous system of the right lower extremity deep. venous system was performed. Bilaterally the common femoral veins appear patent and compressible. Right proximal. greater saphenous vein, proximal deep femoral vein, femoral vein, popliteal vein,. posterior tibial veins and peroneal veins appear patent and compressible. IMPRESSION: NO EVIDENCE OF DEEP VENOUS THROMBOSIS IS IDENTIFIED. . <Electronically signed by Shasta Weaver MD in [facility]> 06/20/18 1118. I discussed the results of the ultrasound and x-ray with the patient and her . There is good pulses normal capillary refill rolled the pain in the hip is minimal. There is no pain in the lower extremity. The plan now is to rest and elevate the leg as needed. I also follow-up with primary care doctor. We discussed if there was any evidence of loss of circulation or pain to the legs needs to get reevaluated right away. - Differential Dx/Diagnosis Provider Diagnoses: RIGHT THIGH AND HIP PAIN. RIGHT LEG EDEMA Discharge - Sign-Out/Discharge Documenting (check all that apply): Patient Departure All imaging exams completed and their final reports reviewed: Yes - Discharge Plan Condition: Stable Disposition: HOME Patient Education Materials: Hip Pain (ED), Leg Edema (ED) Referrals: Gustavo Wells MD [Primary Care Provider] - Additional Instructions: FOLLOW UP WITH YOUR DOCTOR. GET RECHECKED FOR ANY WORSENING OF YOUR CONDITION; LEG PAIN, LOSS OF BLOOD CIRCULATION, NUMBNESS, WEAKNESS OR QUESTIONS OR CONCERNS. - Billing Disposition and Condition Condition: STABLE Disposition: Home
== END 2018-06-20 11:59 | disposition home or self-care (01) ==
LOC: UCEAST 09:43
DX: M79.651 Pain in right thigh (principal); M25.551 Pain in right hip; M16.0 Bilateral primary osteoarthritis of hip; R60.0 Localized edema; Z88.8 Allergy status to other drugs, medicaments and biological substances; Z96.641 Presence of right artificial hip joint; Z87.891 Personal history of nicotine dependence
CPT/HCPCS: 99211; G0463

== ENCOUNTER 2018-07-02 07:30 | Emergency (ER) | payer MEDICARE ==
[2018-07-02 07:45] VITALS: BP 117/49
[2018-07-02] MEDS ORDERED: Albuterol 2.5 MG/3 ML NEB.SOL* (0.083%) INH ONE (08:01)
--- NOTE | 2018-07-02 08:08 | UC ---
Respiratory Complaint HPI - HPI Summary HPI Summary: History of COPD, with onset of cough and chest tightness 2 days ago, with mild sore throat and low grade fever. Comes because at such times she responds to use of antibiotic and oral steroid. Last albuterol was this morning, but has not used her nebulizer. O2 sat here is 91-92%, but she declines albuterol and having a chest xray. Does use inhaled steroid, bronchodilator and nebulizer at home. - History of Current Complaint Chief Complaint: UCGeneralIllness Stated Complaint: CONGESTION, PRODUCTIVE COUGH Time Seen by Provider: 07/02/18 07:59 Hx Obtained From: Patient Hx Last Menstrual Period: post menopaus Onset/Duration: Gradual Onset, Lasting Days - 3 Timing: Constant Severity Initially: Moderate Severity Currently: Moderate Pain Intensity: 0 Character: Cough: Nonproductive Aggravating Factors: Exertion, Deep Breaths Alleviating Factors: Bronchodilator Associated Signs And Symptoms: Positive: Fever, Nasal Congestion, Sinus Discomfort - Risk Factors Pulmonary Embolism Risk Factors: Negative Cardiac Risk Factors: Hypertension Pseudomonas Risk Factors: Negative Tuberculosis Risk Factors: Negative - Allergies/Home Medications Allergies/Adverse Reactions: Allergies Allergy/AdvReac Type Severity Reaction Status Date / Time cilostazol Allergy Itching Verified 07/02/18 07:46 Home Medications: Home Medications Albuterol 2.5MG/3ML (0.083%)* [Ventolin 2.5 MG/3 ML NEB.PAGIE*] 2.5 mg INH Q4H PRN 07/02/18 [History Confirmed 07/02/18] Albuterol HFA INHALER* [Ventolin HFA Inhaler*] 2 puff INH Q4H PRN 07/02/18 [ History Confirmed 07/02/18] PMH/Surg Hx/FS Hx/Imm Hx Previously Healthy: No Cardiovascular History: Hypertension Respiratory History: COPD - Surgical History Surgical History: Yes Surgery Procedure, Year, and Place: hysterectomy,fx right hip REPLACEMENT 2010. baloon angioplasty in November; I and D December 15 - Family History Known Family History: Positive: Cardiac Disease, Hypertension - Social History Occupation: Retired Alcohol Use: Weekly Alcohol Amount: 2-3 DRINKS/WEEK Substance Use Type: None Smoking Status (MU): Former Smoker Type: Cigarettes Amount Used/How Often: 1PPD 40 + YEARS Have You Smoked in the Last Year: No When Did the Patient Quit Smoking/Using Tobacco: 1998 - Immunization History Most Recent Influenza Vaccination: 05/02 Most Recent Tetanus Shot: unknown Most Recent Pneumonia Vaccination: 2013 Review of Systems All Other Systems Reviewed And Are Negative: Yes Constitutional: Positive: Fever, Fatigue Skin: Positive: Negative Eyes: Positive: Negative ENT: Positive: Sore Throat Respiratory: Positive: Shortness Of Breath, Cough Cardiovascular: Positive: Negative Gastrointestinal: Positive: Negative Genitourinary: Positive: Negative Motor: Positive: Negative Neurovascular: Positive: Negative Musculoskeletal: Positive: Negative Neurological: Positive: Negative Psychological: Positive: Negative Is Patient Immunocompromised?: No Physical Exam Triage Information Reviewed: Yes Appearance: No Pain Distress, Well-Nourished, Ill-Appearing - breathing comfortably on room air, looks chronically unwell Vital Signs: Initial Vital Signs Temp 99.4 F 07/02/18 07:41 Pulse 78 07/02/18 07:41 Resp 20 07/02/18 07:41 BP 117/49 07/02/18 07:41 Pulse Ox 92 07/02/18 07:41 Eyes: Positive: Conjunctiva Clear ENT: Positive: Pharynx normal, TMs normal Neck: Positive: Supple, Nontender, No Lymphadenopathy Respiratory Exam: Other - No tachypnea, indrawing or sternomastoid use. Respiratory: Positive: Decreased breath sounds, Wheezing - throughout both lung hankins. Abdomen Description: Positive: Nontender, No Organomegaly, Soft Bowel Sounds: Positive: Present Musculoskeletal Exam: Other - kyphotic chest wall Neurological: Positive: Alert Psychological Exam: Normal Skin Exam: Normal UC Diagnostic Evaluation - Laboratory O2 Sat by Pulse Oximetry: 92 Respiratory Course/Dx - Course Course Of Treatment: doxy and oral steroid for exacerbation of COPD - Differential Dx/Diagnosis Differential Diagnosis/HQI/PQRI: Asthma, Exacerbation Of COPD, Laryngitis, Lower Resp Infection, Sinusitis Provider Diagnoses: exacerbation of COPD Discharge - Sign-Out/Discharge Documenting (check all that apply): Patient Departure All imaging exams completed and their final reports reviewed: No Studies - Discharge Plan Condition: Stable Disposition: HOME Prescriptions: DOXYcycline CAP(*) [DOXYcycline 100MG CAP(*)] 100 mg PO BID #14 cap predniSONE [Deltasone 20 MG TAB] 2 tab PO DAILY #10 tablet Patient Education Materials: COPD (Chronic Obstructive Pulmonary Disease) (ED) Referrals: Priscilla,Gustavo, MD [Primary Care Provider] - Additional Instructions: Begin use of doxycycline as an antibiotic for treatment of bronchitis and COPD. Ensure that you stay well hydrated, and use acetaminophen for any fever or discomfort. Please use an albuterol nebulizer on your return home to bring up your oxygen saturation. If you have worsening shortness of breath, please go to the emergency room for evaluation. - Billing Disposition and Condition Condition: STABLE Disposition: Home
== END 2018-07-02 08:26 | disposition home or self-care (01) ==
LOC: UCEAST 07:30
DX: J44.1 Chronic obstructive pulmonary disease with (acute) exacerbation (principal); I10 Essential (primary) hypertension; Z87.891 Personal history of nicotine dependence
CPT/HCPCS: 99212; G0463

== ENCOUNTER 2018-08-18 07:07 | Emergency (ER) | payer MEDICARE ==
[2018-08-18 07:18] VITALS: BP 137/66
--- NOTE | 2018-08-18 07:35 | UC ---
Respiratory Complaint HPI - HPI Summary HPI Summary: 83-year-old woman comes to clinic today with chief complaint of cough chest congestion and yellow and green sputum. She's had upper respiratory tract infection symptoms for several days. This morning she started bringing up green sputum. She has COPD and she uses inhalers at home which do help with the shortness of breath and chest congestion. Shortness of breath is mild. No recent fevers. No chest pain no edema. Asked the patient if she was worried about her heart she denies any concerns of heart issues at this time. - History of Current Complaint Chief Complaint: UCRespiratory Stated Complaint: CONGESTION Time Seen by Provider: 08/18/18 07:24 Hx Last Menstrual Period: post menopaus Pain Intensity: 3 - Allergies/Home Medications Allergies/Adverse Reactions: Allergies Allergy/AdvReac Type Severity Reaction Status Date / Time cilostazol Allergy Itching Verified 08/18/18 07:18 Home Medications: Home Medications Tiotropium CAP.INH* [Spiriva CAP.INH*] 1 cap.inh INH DAILY 08/18/18 [History Confirmed 08/18/18] PMH/Surg Hx/FS Hx/Imm Hx Previously Healthy: Yes Endocrine History: Hypothyroidism, Dyslipidemia Cardiovascular History: Hypertension Respiratory History: COPD - Surgical History Surgical History: Yes Surgery Procedure, Year, and Place: hysterectomy,fx right hip REPLACEMENT 2010. baloon angioplasty in November; I and D December 15 - Family History Known Family History: Positive: Cardiac Disease, Hypertension - Social History Alcohol Use: Weekly Alcohol Amount: 2-3 DRINKS/WEEK Substance Use Type: None Smoking Status (MU): Former Smoker Type: Cigarettes Amount Used/How Often: 1PPD 40 + YEARS Have You Smoked in the Last Year: No When Did the Patient Quit Smoking/Using Tobacco: 1998 - Immunization History Most Recent Influenza Vaccination: 05/02 Most Recent Tetanus Shot: unknown Most Recent Pneumonia Vaccination: 2013 Review of Systems All Other Systems Reviewed And Are Negative: Yes Constitutional: Positive: Negative Skin: Positive: Negative Eyes: Positive: Negative ENT: Positive: Sore Throat, Nasal Discharge, Sinus Congestion Respiratory: Positive: Shortness Of Breath, Cough Cardiovascular: Positive: Negative Gastrointestinal: Positive: Negative Motor: Positive: Negative Neurovascular: Positive: Negative Musculoskeletal: Positive: Negative Neurological: Positive: Negative Psychological: Positive: Negative Is Patient Immunocompromised?: No Physical Exam Triage Information Reviewed: Yes Appearance: No Pain Distress, Well-Nourished, Ill-Appearing - mild Vital Signs: Initial Vital Signs Temp 98.7 F 08/18/18 07:14 Pulse 84 08/18/18 07:14 Resp 18 08/18/18 07:14 BP 137/66 08/18/18 07:14 Pulse Ox 89 08/18/18 07:14 Vital Signs Reviewed: Yes Eye Exam: Normal Eyes: Positive: Conjunctiva Clear ENT: Positive: Pharyngeal erythema, Nasal congestion, Nasal drainage, TMs normal Neck exam: Normal Neck: Positive: Supple Respiratory: Positive: Lungs clear, Normal breath sounds, No respiratory distress Cardiovascular: Positive: RRR Musculoskeletal Exam: Normal Musculoskeletal: Positive: Strength Intact, ROM Intact, No Edema Neurological Exam: Normal Neurological: Positive: Alert, Muscle Tone Normal Psychological Exam: Normal Psychological: Positive: Normal Response To Family, Age Appropriate Behavior Skin Exam: Normal UC Diagnostic Evaluation - Laboratory O2 Sat by Pulse Oximetry: 89 Respiratory Course/Dx - Course Course Of Treatment: Due to the patient's age history of COPD and green sputum production I will start antibiotics. I discussed antibiotics with the patient and she says doxycycline helps her. She will continue with her breathing treatments. I emphasized that if she has any worsening she needs to get reevaluated most likely in the emergency department. Her initial O2 sat read as 89%. Patient is not short of breath on examination. Recheck is 91%. Follow -up with primary care doctor reevaluate if worsening. - Differential Dx/Diagnosis Provider Diagnosis: Bronchitis Discharge - Sign-Out/Discharge Documenting (check all that apply): Patient Departure All imaging exams completed and their final reports reviewed: No Studies - Discharge Plan Condition: Stable Disposition: HOME Prescriptions: DOXYcycline CAP(*) [DOXYcycline 100MG CAP(*)] 100 mg PO BID #20 cap Patient Education Materials: Acute Bronchitis (ED), COPD (Chronic Obstructive Pulmonary Disease) (ED) Referrals: Gustavo Wells MD [Primary Care Provider] - Additional Instructions: FOLLOW UP WITH YOUR DOCTOR. GO TO THE EMERGENCY DEPARTMENT FOR ANY WORSENING OF YOUR CONDITION; CHEST PAIN, SHORTNESS OF BREATH, YOU FEEL ILL, WEAKNESS OR QUESTIONS OR CONCERNS. - Billing Disposition and Condition Condition: STABLE Disposition: Home
== END 2018-08-18 07:42 | disposition home or self-care (01) ==
LOC: UCEAST 07:07
DX: J40 Bronchitis, not specified as acute or chronic (principal); I10 Essential (primary) hypertension; J44.9 Chronic obstructive pulmonary disease, unspecified; Z87.891 Personal history of nicotine dependence; Z88.8 Allergy status to other drugs, medicaments and biological substances
CPT/HCPCS: 99212; G0463

== ENCOUNTER 2019-01-06 08:44 | Emergency (ER) | payer MEDICARE ==
--- NOTE | 2019-01-06 10:18 | UC ---
Respiratory Complaint HPI - HPI Summary HPI Summary: 83-year-old female who has a history of COPD she is not presently a smoker. She states over the last 3 weeks she has had a productive cough of white sputum however the past few days and has turned yellow. She denies any shortness of breath or difficulty breathing. - History of Current Complaint Chief Complaint: UCRespiratory Stated Complaint: RESP COMPLAINT Time Seen by Provider: 01/06/19 09:55 Hx Obtained From: Patient Hx Last Menstrual Period: post menopaus ?: No Onset/Duration: Gradual Onset Timing: Intermittent Episodes Severity Initially: Mild Severity Currently: Mild Pain Intensity: 0 Character: Cough: Productive - Effective cough of white sputum for 3 weeks and now yellow. Aggravating Factors: Nothing Alleviating Factors: Nothing Associated Signs And Symptoms: Positive: Chills - Allergies/Home Medications Allergies/Adverse Reactions: Allergies Allergy/AdvReac Type Severity Reaction Status Date / Time cilostazol Allergy Itching Verified 01/06/19 08:56 PMH/Surg Hx/FS Hx/Imm Hx Previously Healthy: Yes Endocrine History: Thyroid Disease Cardiovascular History: Hypertension Respiratory History: COPD, Asthma - Surgical History Surgical History: Yes Surgery Procedure, Year, and Place: hysterectomy,fx right hip REPLACEMENT 2010. baloon angioplasty in November; I and D December 15 - Family History Known Family History: Positive: Cardiac Disease, Hypertension - Social History Alcohol Use: Weekly Alcohol Amount: 2-3 DRINKS/WEEK Substance Use Type: None Smoking Status (MU): Former Smoker Type: Cigarettes Amount Used/How Often: 1PPD 40 + YEARS Have You Smoked in the Last Year: No When Did the Patient Quit Smoking/Using Tobacco: 1998 - Immunization History Most Recent Influenza Vaccination: 05/02 Most Recent Tetanus Shot: unknown Most Recent Pneumonia Vaccination: 2013 Review of Systems All Other Systems Reviewed And Are Negative: Yes Constitutional: Positive: Chills Respiratory: Positive: Cough - Productive cough of white sputum for 3 weeks and now yellow sputum. Is Patient Immunocompromised?: No Physical Exam Triage Information Reviewed: Yes Appearance: Well-Appearing, No Pain Distress, Well-Nourished Vital Signs: Initial Vital Signs Temp 97.5 F 01/06/19 08:53 Pulse 76 01/06/19 08:53 Resp 16 01/06/19 08:53 BP 137/57 01/06/19 08:53 Pulse Ox 94 01/06/19 08:53 Vital Signs Reviewed: Yes Eye Exam: Normal ENT: Positive: Hearing grossly normal, Pharynx normal, TMs normal, Uvula midline Neck: Positive: Supple, Nontender, No Lymphadenopathy Respiratory: Positive: Lungs clear, Normal breath sounds - Loose moist cough, no distress, No respiratory distress, No accessory muscle use Cardiovascular: Positive: RRR, No Murmur, Pulses Normal, Brisk Capillary Refill Abdomen Description: Positive: Nontender, Soft Bowel Sounds: Positive: Present Musculoskeletal Exam: Normal Neurological Exam: Normal Psychological Exam: Normal Skin Exam: Normal Respiratory Course/Dx - Course Course Of Treatment: Chest x-ray:FINDINGS: The heart is within normal limits in size. Mediastinal and hilar contours appear within normal limits. There is a small 5 mm nodular density which projects over the right upper lobe which appears unchanged from the prior study. The lungs are hyperinflated. There is a small infiltrate at the right lung base. No pleural effusion is seen. IMPRESSION: 1. SMALL RIGHT BASILAR INFILTRATE. 2. STABLE RIGHT UPPER LOBE PULMONARY NODULE. 3. COPD. Patient has been comfortable here and she is in no distress. I'm going to start her on doxycycline which she has had before in the past. I would like her to follow up with her primary care provider on Wednesday for recheck and deathly coming into the weekend if she has any worsening symptoms she is to go to the emergency room. The patient is agreeable with this plan of action. I did advise her not to eat or drink dairy products, antacids or multivitamins 2 hours before and 2 hours after she takes doxycycline but to definitely take with food. - Differential Dx/Diagnosis Provider Diagnosis: CAP (community acquired pneumonia) Discharge - Sign-Out/Discharge Documenting (check all that apply): Patient Departure All imaging exams completed and their final reports reviewed: Yes - Discharge Plan Condition: Fair Disposition: HOME Prescriptions: DOXYcycline CAP(*) [DOXYcycline 100MG CAP(*)] 100 mg PO DAILY 7 Days #14 cap Patient Education Materials: Pneumonia (ED) Referrals: Gustavo Wells MD [Primary Care Provider] - Additional Instructions: Increase fluids, do not eat or drink any dairy products, antacids or multivitamins 2 hours before you take the doxycycline and 2 hours after you take the doxycycline however you do need to take it with food. I would like you to make an appointment with your primary care provider for a recheck next week Wednesday or Wednesday. If you develop any worsening symptoms, difficulty breathing, chest pain your to go to the emergency room. - Billing Disposition and Condition Condition: FAIR Disposition: Home
[2019-01-06 11:06] VITALS: BP 133/65
--- NOTE | 2019-01-06 11:39 | UC ---
- Progress Note Progress Note: The prescription was corrected to doxycycline 100 mg by mouth twice a day 7 days. The pharmacy called about that and it was changed. Course/Dx - Diagnoses Provider Diagnoses: CAP (community acquired pneumonia) Discharge - Sign-Out/Discharge Documenting (check all that apply): Post-Discharge Follow Up All imaging exams completed and their final reports reviewed: Yes - Discharge Plan Condition: Fair Disposition: HOME Prescriptions: DOXYcycline CAP(*) [DOXYcycline 100MG CAP(*)] 100 mg PO DAILY 7 Days #14 cap Patient Education Materials: Pneumonia (ED) Referrals: Gustavo Wells MD [Primary Care Provider] - Additional Instructions: Increase fluids, do not eat or drink any dairy products, antacids or multivitamins 2 hours before you take the doxycycline and 2 hours after you take the doxycycline however you do need to take it with food. I would like you to make an appointment with your primary care provider for a recheck next week Wednesday or Wednesday. If you develop any worsening symptoms, difficulty breathing, chest pain your to go to the emergency room. - Billing Disposition and Condition Condition: FAIR Disposition: Home
== END 2019-01-06 11:04 | disposition home or self-care (01) ==
LOC: UCEAST 08:44
DX: J18.9 Pneumonia, unspecified organism (principal); I10 Essential (primary) hypertension; J44.9 Chronic obstructive pulmonary disease, unspecified; Z88.8 Allergy status to other drugs, medicaments and biological substances; Z87.891 Personal history of nicotine dependence
CPT/HCPCS: 71046; 99212; G0463

== ENCOUNTER 2019-01-19 09:28 | Emergency (ER) | payer MEDICARE ==
--- OUTSIDE RECORDS SUMMARY | 2019-01-19 09:35 | XMS REPORT | Continuity of Care Document ---
:1935 External Reference #:[id number] Author Name Roxanne Pineda Care Team Providers Name Role Phone Gustavo Wells III, MD Primary Care Physician Unavailable Payers Date Identification Numbers Payment Provider Subscriber Effective: 1998 Policy Number: [id number] Medicare Yazmin Alan Pablo PayID: [id number] [address] [place] [address] Effective: 2013 Policy Number: [facility] Yazmin S Pablo [id number] PayID: [id number] [address] [place] [address] Expires: 2013 Policy Number: [id number] [facility] Yazmin Alan Pablo PayID: [id number] [address] [address] [place] [address] Policy Number: MED PART D Medicare D - Drug Plan Yazmin Alan Pablo PayID: [id number] Problems Active Problems Provider Date Hypothyroidism Alysha Francisco N.P. Onset: 03/06/2011 Pulmonary emphysema Alysha Francisco, N.P. Onset: 03/06/2011 Essential hypertension Alysha Francisco, N.P. Onset: 03/06/2011 Asthma without status asthmaticus Alysha Francisco N.PRios Onset: 03/06/2011 Pure hypercholesterolemia Alysha Francisco N.P. Onset: 03/06/2011 Impaired fasting glycaemia Gustavo Wells M.D. Onset: 05/20/2011 Acute exacerbation of chronic Itzel Eyad N.Marjorie Onset: 11/11/2011 obstructive airways disease Chronic obstructive lung disease Gustavo Wells M.D. Onset: 12/12/2012 Allergic rhinitis Karime Hansen MD Onset: 07/17/2014 Disorder of lung Karime Hansen MD Onset: 07/17/2014 Low back pain Gustavo Wells M.D. Onset: 09/04/2016 Peripheral vascular disease Gustavo Wells M.D. Onset: 09/04/2016 Female stress incontinence Gustavo Wells M.D. Onset: 09/04/2016 Atherosclerosis of arteries of the Keyon Teague MD, [facility], Onset: 2016 extremities FSCAI Family History Date Family Member(s) Observation Comments General Hypertension Father [place] Mother Healthy until of old age Social History Type Date Description Comments Sex Unknown Marital Status Lives With Occupation Retired Tobacco Use Start: Unknown End: Former Cigarette Smoker Unknown 5-10 Cigarettes Daily ETOH Use Drinks 1 Alcoholic Beverage Per Day Tobacco Use Start: Unknown End: Patient is a former smoked for 30yrs, Unknown smoker quit in 1998 Recreational Drug Use Denies Drug Use Smoking Status Reviewed: 01/11/19 Patient is a former smoked for 30yrs, smoker quit in 1998 Exercise Type/Frequency Exercises sporadically Allergies, Adverse Reactions, Alerts Active Allergies Reaction Severity Comments Date Paxil 03/15/2006 Cilostazol itching 05/11/2016 Medications Active Medications SIG Qnty Indications Ordering Date Provider Prednisone 1 by mouth every 10tabs J44.1 Gustavo Flannery 04/14/2018 20mg Tablets day Sandy Wells Alendronate Sodium take 1 tablet by 12tabs M81.0 Gustavo Flannery 09/16/2016 70mg mouth every week Sandy Wells Tablets Atorvastatin Calcium take 1 tablet by 90tabs I73.9 Gustavo Flannery 04/15/2016 mouth every day Sandy Wells 40mg Tablets Amlodipine Besylate take 1 tablet by 90tabs Gustavo Flannery 03/03/2016 mouth every day Sandy Wells 10mg Tablets Spiriva Handihaler 1 unit inhalation 3caps Gustavo Flannery 02/13/2015 daily Sandy Wells 18mcg Capsules Levothyroxine Sodium Take 1 Tablet By 90tabs Gustavo Flannery 06/21/2014 Mouth Every Day Sandy Wells 50mcg Tablets Escitalopram Oxalate Take 1 Tablet By 90tabs Gustavo Flannery 07/24/2013 Mouth Every Day Sandy Wells 20mg Tablets Losartan Potassium take 1 tablet by 90tabs Gustavo Flannery 01/02/2013 mouth every day Sandy Wells 100mg Tablets Proair HFA 2 puffs by mouth 3units Gustavo Flannery 12/12/2012 108(90Base) four times a day Sandy Wells mcg/Act Aerosol as needed Symbicort use 2 puffs twice 18gm Gustavo Flannery 02/18/2010 daily Sandy Wells 160-4.5mcg/Act Aerosol Albuterol Sulfate use qid prn 251Box Gustavo Flannery 11/08/2007 Sandy Wells 0.083% Nebulizer Albuterol Sulfate 1 vial via 100units Unknown nebulizer 4 times (2.5mg/3ML) 0.083% daily as needed Nebulizer Aspir-81 1 by mouth every Unknown 81mg Tablets day DR Doxycycline Hyclate 1 by mouth twice Unknown a day 100mg Tablets DR History Medications Furosemide 1 by mouth every 90tabs I73.9 Keyon TRios 01/27/2017 - 40mg Tablets morning(No Longer MD Zahida, 11/21/2017 Taking) [facility], [facility] Furosemide take one tablet 30tabs I73.9 Keyon TRios 12/21/2016 - 20mg Tablets by mouth every MD Zahida, 11/21/2017 other morning as [facility] needed for swelling (No Longertaking) Clopidogrel Bisulfate 1 by mouth every 90tabs Keyon TRios 12/09/2016 - 75mg day(No Longer MD Zahida, 11/22/2016 Tablets Taking) [facility], [facility] Cilostazol i by mouth twice 60tabs I73.9 Keyon Juarez 04/15/2016 - 50mg Tablets a day MD Zahida, 05/11/2016 [facility], [facility] Methylprednisolone (Imtiaz) take 6 tabs on 21tabs L29.9 Sonu Carter, 2014 - 4mg day 1, 5 tabs on [employer] 04/14/2016 Tablets day 2, 4 tabs on day 3, 3 tabs on day 4, 2 tabs on day 5, 1 tab on day 6 Fluticasone Propionate 2 sprays each 16gm Karime 07/23/2014 - nostril everyday MD Tyrone 11/21/2017 50mcg/Act Suspension prn Fluticasone Propionate 2 sprays each 16gm 477.9 Karmie 07/17/2014 - nostril everyday MD Tyrone 07/29/2015 50mcg/Act Suspension Levaquin 1 by mouth every 5tabs Other 06/21/2014 - 500mg Tablets day x 5 days Ordering 06/26/2014 Provider Prednisone 1 by mouth every 5tabs Other 06/21/2014 - 20mg Tablets day - taper dose Ordering 03/01/2015 pack Provider Doxepin HCL 1 by mouth every 90caps Other 06/21/2014 - 10mg Capsules night at bedtime Ordering 03/02/2016 Provider [place] Thyroid 1 by mouth every 30tabs Gustavo Flannery 05/01/2014 - 30mg Tablets day Sandy Wells 06/21/2014 Propranolol HCL 1 Tablet two 60tabs 333.1 Sonu Carter, 04/12/2014 - 40mg Tablets times per day [employer] 05/01/2014 Losartan Potassium 1 po qd 90tabs Pernell Graham 05/06/2012 - 50mg Tablets Roxana, 01/02/2013 XIOMARA Delgado Lisinopril/Hydrochlorothi 1 PO qd 90tabs Alysha 04/29/2012 - azide [facility], 04/29/2012 20-25mg Tablets N.P. Losartan Potassium 1 po qd 30tabs Alysha 04/29/2012 - 25mg Tablets [facility], 05/06/2012 N.P. Hydrochlorothiazide 1 by mouth every 90tabs Sonu Carter, 04/29/2012 - 25mg day [employer] 03/03/2016 Tablets Hydrochlorothiazide 1 po qd 90tabs Gustavo Flannery 04/20/2012 - 25mg Sandy Wells 04/29/2012 Tablets Spiriva Handihaler 2 inhalations 90caps 496 Gustavo Flannery 04/15/2012 - 18mcg from 1 capsule Sandy Wells 06/21/2014 Capsules every morning Prednisone 5 tab x2 day, 4 26tabs 466.0 Alysha 04/15/2012 - 10mg Tablets tab x 2day, 3 tab [facility], 09/08/2012 x 1 day, 2 tab N.P. x1day, 1 tab x 1day Ciprofloxacin HCL 1 tab po bid x 10 14tabs 466.0 [facility] 04/15/2012 - 500mg Tablets days [facility], 09/08/2012 N.P. Cheratussin ac 5-10 ml po q4-6h 236ml [facility] 04/08/2012 - 100-10mg/5ML prn [facility], 09/08/2012 Syrup N.P. Augmentin bid x 10 days 20tabs [facility] 04/08/2012 - 875-125mg Tablets [facility], 04/11/2012 N.P. Prednisone take one tab for 7tabs 491.21 Gustavo Flannery 11/11/2011 - 20mg Tablets 7 days Sandy Wells 12/12/2012 Gloria Chand 1-2 po tid prn 30capcortez Flannery 11/02/2011 - 100mg Capsules Sandy Wells 09/08/2012 Vitamin C & E Gustavo Flannery 05/20/2011 - [id number] Sandy Wells 05/20/2011 Capsules Vitamin C SR Gustavo Flannery 05/20/2011 - 500mg Capsules DILLON Wells M.D. 12/09/2011 Zithromax Z-Imtiaz two po initially Antonino Flannery 05/12/2011 - 250mg Tablets then one po daily Sandy Wells 03/19/2014 Prednisone 1 po qd for 7 7tabs Gustavo Flannery 05/12/2011 - 20mg Tablets gomez Wells M.D. 05/20/2011 Albuterol 2 puffs po qid 51Grams Gustavo Flannery 06/11/2010 - 90mcg/Act Aerosol prn Sandy Wells 12/12/2012 Gloria Chand 1-2 po tid prn 30capcortez Flannery 10/11/2009 - 100mg Capsules Sandy Wells 02/18/2010 Amoxicillin 1 bid for 10 days 20caps Gustavo Flannery 09/10/2009 - 500mg Capsules Sandy Wells 02/18/2010 Zithromax Z-Imtiaz as per directions 1Pliam Flannery 07/29/2009 - 250mg Tablets Sandy Wells 08/23/2009 Symbicort 2 puff bid 3unmaddie Flannery 01/08/2009 - 80-4.5 Aerosol Sandy Wells 02/18/2010 Zithromax Z-Imtiaz as Per Directions 1Pliam Flannery 08/17/2008 - 250mg Tablets Sandy Wells 01/08/2009 Flovent HFA 2 puff bid 3unmaddie Flannery 05/11/2008 - 110mcg/Act Aerosol Sandy Wells 01/08/2009 Proair HFA 2 Puffs qid prn 3unmaddie Flannery 04/27/2008 - 108mcg/Act Aerosol Sandy Wells 08/23/2009 Zithromax Z-Imtiaz as per directions 1Pliam Flannery 04/17/2008 - 250mg Tablets Sandy Wells 01/08/2009 Medrol Dosepak per directions 1tacharlotte Flannery 04/17/2008 - 4mg Tablets Sandy Wells 01/08/2009 Elidel prn Dhaval, 01/03/2008 - 1% Cream MD Dino 02/18/2010 Hydroxyzine HCL 1-2 po qhs prn 30tabs Dhaval, 01/03/2008 - 10mg Tablets MD Dino 07/09/2008 Doxepin HCL 1-2 qhs prn 100caps Dhaval, 01/03/2008 - 10mg Capsules MD Dino 01/08/2009 Triamcinolone Acetonide Apply prn 80GM Dhaval, 01/03/2008 - 0.1% MD Dino 02/18/2010 Cream Sarna Apply prn itching Dhaval, 01/03/2008 - otc MD Dino 06/26/2014 Medrol Dosepak per directions 1kathleen Flannery 11/08/2007 - 4mg Tablets Sandy Wells 06/11/2010 Tessalon Perles 1-2 po tid prn 30caps Gustavo Flannery 11/03/2007 - 100mg Capsules Sandy Wells 01/08/2009 Lisinopril/Hydrochlorothi 1 PO qd 90tabs Gustavo Flannery 03/16/2007 - azide Sandy Wells 04/20/2012 20-25mg Tablets Synthroid po qday 90tacharlotte Flannery - 50mcg Tablets Sandy Wells 05/01/2014 Albuterol 2 Puffs bid prn 1Da Renteria, - 90mcg/Act Aerosol 04/27/2008 Lexapro 1 PO qd 90tacharlotte Flannery - 20mg Tablets Sandy Wells 07/24/2013 Aspir-81 1 PO qd Unknown - 81mg Tablets 07/19/2016 Nasonex 2 Sprays Both 1Da Renteria, - 50mcg/Act Suspension Nostrils qd 01/03/2008 Acyclovir 1 by mouth every 25caps Unknown - 200mg Capsules 4 hours for a 04/06/2014 total of 5 days as needed Gabapentin 1 by mouth in the 90caps Unknown - 300mg Capsules day and one at 07/16/2014 bedtime. Amlodipine Besylate Take 1 tablet by 90tacharlotte Flannery - 5mg Tablets mouth every day Sandy Wells 03/03/2016 Medications Administered in Office Medication SIG Qnty Indications Ordering Provider Date Influenza Virus Vaccine Unknown 05/15/2014 Injection Immunizations CPT Code Status Date Vaccine Lot # [id number] Given 04/14/2018 Tdap - Tetanus/Diptheria/Acellular Pertussis [id number] Given 05/14/2017 Influenza Virus Vaccine, Quadrivalent, Split, Preservative Free [id number] Given 05/20/2016 Fluzone High Dose Q2039 Given 05/20/2015 Flu Vaccine NOS [id number] Given 05/29/2014 Pneumococcal Conjugate Vaccine 13 Valent For [id number] Intramuscular Use Q2038 Given 05/23/2012 Fluzone Vaccine [id number] Q2038 Given 05/20/2011 Fluzone Vaccine [id number] 56267 Given 08/23/2009 Influenza Virus Vaccine, Pandemic Formulation [id number] 48620 Given 05/11/2008 Influenza Virus 3Yrs & Over 26756 Given 01/03/2008 Tetanus And Diptheria (Td) For Adult Use Preservative Free 61433 Given 01/03/2008 Tetanus And Diptheria (Td) For Adult Use [id number] Preservative Free 95104 Given 05/24/2007 Influenza Virus 3Yrs & Over 33415 Given 12/05/2002 Pneumovax (History By Patient) Vital Signs Date Vital Result Comment 01/11/2019 11:05am Height 59.5 inches 4'11.50" Weight 145.00 lb with shoes Heart Rate 68 /min BP Systolic Sitting 146 mmHg lue reg cuff BP Diastolic Sitting 68 mmHg lue reg cuff BP Systolic Standing 138 mmHg lue reg cuff BP Diastolic Standing 70 mmHg lue reg cuff BMI (Body Mass Index) 28.8 kg/m2 Ejection Fraction 65% Echo 04/29/12 04/14/2018 10:20am Height 59.5 inches 4'11.50" Weight 146.00 lb Heart Rate 73 /min BP Systolic Sitting 140 mmHg BP Diastolic Sitting 70 mmHg Body Temperature 99.5 F O2 % BldC Oximetry 93 % BMI (Body Mass Index) 29.0 kg/m2 11/24/2017 9:53am Weight 146.00 lb Heart Rate 79 /min BP Systolic Sitting 130 mmHg BP Diastolic Sitting 74 mmHg Body Temperature 97.8 F O2 % BldC Oximetry 94 % 11/22/2017 11:10am Height 59 inches 4'11" Weight 150.00 lb w/ shoes Heart Rate 88 /min BP Systolic Sitting 136 mmHg lue reg cuff BP Diastolic Sitting 72 mmHg lue reg cuff Respiratory Rate 20 /min BMI (Body Mass Index) 30.3 kg/m2 Ejection Fraction 65% echo 04/29/12 07/05/2017 10:56am Height 59 inches 4'11" Weight 151.00 lb w/ shoes Heart Rate 78 /min BP Systolic Sitting 134 mmHg lue reg cuff BP Diastolic Sitting 74 mmHg lue reg cuff Respiratory Rate 18 /min BMI (Body Mass Index) 30.5 kg/m2 01/27/2017 9:44am Height 59 inches 4'11" Weight 149.00 lb w/ shoes Heart Rate 76 /min reg BP Systolic Sitting 134 mmHg Lue, reg cuff BP Diastolic Sitting 64 mmHg Lue, reg cuff Respiratory Rate 16 /min BMI (Body Mass Index) 30.1 kg/m2 12/21/2016 9:32am Height 59 inches 4'11" Weight 151.00 lb w/o shoes Heart Rate 78 /min reg BP Systolic Sitting 114 mmHg Lue, reg cuff BP Diastolic Sitting 60 mmHg Lue, reg cuff Respiratory Rate 16 /min BMI (Body Mass Index) 30.5 kg/m2 12/14/2016 9:49am Height 59 inches 4'11" Weight 148.00 lb w/o shoes Heart Rate 70 /min reg BP Systolic Sitting 150 mmHg Rue, reg cuf BP Diastolic Sitting 70 mmHg Rue, reg cuf Respiratory Rate 16 /min BMI (Body Mass Index) 29.9 kg/m2 11/23/2016 9:37am Height 59 inches 4'11" Weight 147.00 lb w/o shoes Heart Rate 78 /min reg BP Systolic Sitting 150 mmHg Rue, reg cuff BP Diastolic Sitting 70 mmHg Rue, reg cuff Respiratory Rate 16 /min BMI (Body Mass Index) 29.7 kg/m2 09/16/2016 9:52am Weight 147.00 lb Heart Rate 68 /min BP Systolic Sitting 124 mmHg BP Diastolic Sitting 82 mmHg Respiratory Rate 14 /min Body Temperature 97.9 F O2 % BldC Oximetry 97 % 09/04/2016 9:53am Weight 145.25 lb Heart Rate 74 /min BP Systolic Sitting 140 mmHg BP Diastolic Sitting 72 mmHg Body Temperature 97.6 F Pain Level 94 07/20/2016 9:52am Height 60.25 inches 5'0.25" Weight 144.00 lb Heart Rate 76 /min BP Systolic Sitting 150 mmHg left arm, reg cuff BP Diastolic Sitting 62 mmHg left arm, reg cuff Respiratory Rate 20 /min BMI (Body Mass Index) 27.9 kg/m2 04/15/2016 9:53am Height 60.25 inches 5'0.25" Weight 146.00 lb Heart Rate 68 /min BP Systolic Sitting 164 mmHg right arm, reg cuff BP Diastolic Sitting 72 mmHg right arm, reg cuff Respiratory Rate 20 /min BMI (Body Mass Index) 28.3 kg/m2 Ejection Fraction 65% 04/29/12 03/30/2016 11:32am Weight 146.00 lb Heart Rate 66 /min BP Systolic Sitting 140 mmHg BP Diastolic Sitting 60 mmHg Body Temperature 96.9 F O2 % BldC Oximetry 97 % 03/03/2016 9:19am Height 60.25 inches 5'0.25" Weight 143.00 lb Heart Rate 74 /min BP Systolic 176 mmHg BP Diastolic 75 mmHg Body Temperature 98.6 F O2 % BldC Oximetry 93 % BMI (Body Mass Index) 27.7 kg/m2 08/05/2015 10:15am Height 60.75 inches 5'0.75" Weight 140.00 lb Heart Rate 64 /min BP Systolic 118 mmHg BP Diastolic 64 mmHg Body Temperature 98.1 F O2 % BldC Oximetry 95 % BMI (Body Mass Index) 26.7 kg/m2 07/29/2015 10:19am Height 60.75 inches 5'0.75" Weight 139.00 lb Heart Rate 74 /min BP Systolic 124 mmHg BP Diastolic 70 mmHg Body Temperature 98.7 F O2 % BldC Oximetry 95 % BMI (Body Mass Index) 26.5 kg/m2 05/29/2015 2:22pm Height 60.75 inches 5'0.75" Weight 140.00 lb Heart Rate 84 /min BP Systolic Sitting 128 mmHg BP Diastolic Sitting 80 mmHg Respiratory Rate 12 /min Body Temperature 98.0 F O2 % BldC Oximetry 98 % BMI (Body Mass Index) 26.7 kg/m2 03/01/2015 10:16am Height 60.75 inches 5'0.75" Weight 140.75 lb Heart Rate 68 /min BP Systolic Sitting 128 mmHg BP Diastolic Sitting 64 mmHg Body Temperature 96.0 F O2 % BldC Oximetry 95 % BMI (Body Mass Index) 26.8 kg/m2 12/12/2014 8:02am Height 60 inches 5'0" Weight 142.00 lb Heart Rate 71 /min BP Systolic Sitting 124 mmHg BP Diastolic Sitting 62 mmHg Respiratory Rate 20 /min O2 % BldC Oximetry 92 % BMI (Body Mass Index) 27.7 kg/m2 07/17/2014 11:04am Height 60.5 inches 5'0.50" Weight 143.00 lb Heart Rate 67 /min BP Systolic Sitting 120 mmHg BP Diastolic Sitting 58 mmHg Respiratory Rate 20 /min Body Temperature 97.9 F O2 % BldC Oximetry 97 % BMI (Body Mass Index) 27.5 kg/m2 Neck Circumference in inches 15.5 06/26/2014 11:29am Height 60.5 inches 5'0.50" Weight 141.50 lb Heart Rate 73 /min BP Systolic Sitting 126 mmHg BP Diastolic Sitting 62 mmHg Body Temperature 98.3 F O2 % BldC Oximetry 95 % BMI (Body Mass Index) 27.2 kg/m2 05/29/2014 10:29am Height 60.5 inches 5'0.50" Weight 151.00 lb Heart Rate 84 /min BP Systolic Sitting 142 mmHg BP Diastolic Sitting 84 mmHg Body Temperature 98.6 F BMI (Body Mass Index) 29.0 kg/m2 05/14/2014 9:47am Weight 152.50 lb Heart Rate 77 /min BP Systolic Sitting 133 mmHg BP Diastolic Sitting 71 mmHg Body Temperature 98.1 F Pain Level 92 05/01/2014 10:52am Weight 158.25 lb Heart Rate 88 /min BP Systolic Sitting 144 mmHg BP Diastolic Sitting 86 mmHg Body Temperature 98.0 F 04/12/2014 10:55am Weight 154.50 lb Heart Rate 81 /min BP Systolic Sitting 150 mmHg BP Diastolic Sitting 64 mmHg O2 % BldC Oximetry 90 % 04/06/2014 10:54am Height 60.5 inches 5'0.50" Weight 154.75 lb Heart Rate 80 /min BP Systolic Sitting 138 mmHg BP Diastolic Sitting 66 mmHg Body Temperature 98.6 F BMI (Body Mass Index) 29.7 kg/m2 03/19/2014 11:22am Height 61.25 inches 5'1.25" Weight 155.50 lb Heart Rate 90 /min BP Systolic Sitting 110 mmHg BP Diastolic Sitting 68 mmHg Body Temperature 99.5 F BMI (Body Mass Index) 29.1 kg/m2 04/27/2013 12:46pm Height 61.25 inches 5'1.25" Weight 154.50 lb Heart Rate 94 /min BP Systolic Sitting 128 mmHg BP Diastolic Sitting 64 mmHg Body Temperature 98.8 F O2 % BldC Oximetry 95 % BMI (Body Mass Index) 29.0 kg/m2 02/22/2013 9:07am Height 61.25 inches 5'1.25" Weight 152.00 lb Heart Rate 80 /min 72 BP Systolic Sitting 156 mmHg home cuff 165/88 BP Diastolic Sitting 76 mmHg home cuff 165/88 BMI (Body Mass Index) 28.5 kg/m2 01/02/2013 10:38am Height 61.25 inches 5'1.25" Weight 154.50 lb Heart Rate 80 /min BP Systolic Sitting 142 mmHg BP Diastolic Sitting 64 mmHg BMI (Body Mass Index) 29.0 kg/m2 12/12/2012 9:50am Height 61 inches 5'1" Weight 154.75 lb Heart Rate 80 /min BP Systolic Sitting 142 mmHg 158/78 repeat BP Diastolic Sitting 70 mmHg 158/78 repeat BMI (Body Mass Index) 29.2 kg/m2 09/08/2012 9:38am Height 61 inches 5'1" Weight 157.00 lb Heart Rate 70 /min BP Systolic Sitting 170 mmHg BP Diastolic Sitting 78 mmHg Body Temperature 99.8 F O2 % BldC Oximetry 95 % BMI (Body Mass Index) 29.7 kg/m2 06/15/2012 9:31am BP Systolic Sitting 175 mmHg 160/70 manual BP Diastolic Sitting 78 mmHg 160/70 manual 05/23/2012 10:00am Height 61 inches 5'1" Weight 152.00 lb Heart Rate 72 /min BP Systolic Sitting 128 mmHg BP Diastolic Sitting 82 mmHg BMI (Body Mass Index) 28.7 kg/m2 04/15/2012 12:59pm Height 61 inches 5'1" Weight 154.00 lb Heart Rate 72 /min BP Systolic Sitting 110 mmHg BP Diastolic Sitting 78 mmHg Body Temperature 98.5 F O2 % BldC Oximetry 97 % BMI (Body Mass Index) 29.1 kg/m2 04/11/2012 3:25pm Height 61 inches 5'1" Weight 156.00 lb Heart Rate 88 /min BP Systolic Sitting 150 mmHg BP Diastolic Sitting 82 mmHg Body Temperature 99.1 F lt ear BMI (Body Mass Index) 29.5 kg/m2 03/29/2012 10:11am Height 61 inches 5'1" Weight 158.00 lb Heart Rate 84 /min BP Systolic Sitting 166 mmHg BP Diastolic Sitting 76 mmHg Body Temperature 97.7 F BMI (Body Mass Index) 29.9 kg/m2 12/09/2011 9:59am Height 61.25 inches 5'1.25" Weight 154.50 lb Heart Rate 80 /min BP Systolic Sitting 104 mmHg BP Diastolic Sitting 70 mmHg BMI (Body Mass Index) 29.0 kg/m2 11/11/2011 11:05am Height 60.5 inches 5'0.50" Weight 158.00 lb Heart Rate 82 /min BP Systolic Sitting 154 mmHg BP Diastolic Sitting 86 mmHg BMI (Body Mass Index) 30.3 kg/m2 05/20/2011 11:34am Height 60.5 inches 5'0.50" Weight 155.00 lb Heart Rate 88 /min BP Systolic Sitting 144 mmHg BP Diastolic Sitting 68 mmHg BMI (Body Mass Index) 29.8 kg/m2 03/06/2011 9:11am Weight 161.00 lb Heart Rate 78 /min BP Systolic Sitting 132 mmHg BP Diastolic Sitting 68 mmHg 12/19/2010 9:30am Weight 164.00 lb Heart Rate 62 /min BP Systolic Sitting 116 mmHg BP Diastolic Sitting 74 mmHg 09/17/2010 9:50am Weight 161.00 lb Heart Rate 82 /min BP Systolic Sitting 160 mmHg BP Diastolic Sitting 80 mmHg 02/18/2010 9:21am Weight 162.00 lb Heart Rate 72 /min BP Systolic Sitting 152 mmHg BP Diastolic Sitting 74 mmHg 12/16/2009 11:52am Weight 164.00 lb Heart Rate 78 /min BP Systolic Sitting 140 mmHg BP Diastolic Sitting 70 mmHg Body Temperature 98.7 F O2 % BldC Oximetry 94 % 10/09/2009 11:21am Height 60.75 inches 5'0.75" Heart Rate 76 /min BP Systolic Sitting 156 mmHg BP Diastolic Sitting 72 mmHg O2 % BldC Oximetry 90 % 08/23/2009 11:39am Height 60.75 inches 5'0.75" Weight 166.00 lb Heart Rate 68 /min BP Systolic Sitting 162 mmHg BP Diastolic Sitting 78 mmHg BMI (Body Mass Index) 31.6 kg/m2 02/13/2009 10:46am Heart Rate 68 /min 68 BP Systolic Sitting 138 mmHg 129/69 BP Diastolic Sitting 68 mmHg 129/69 01/08/2009 9:18am Height 60.75 inches 5'0.75" Weight 165.00 lb Heart Rate 64 /min BP Systolic Sitting 178 mmHg BP Diastolic Sitting 80 mmHg BMI (Body Mass Index) 31.4 kg/m2 07/09/2008 9:52am Height 61 inches 5'1" Weight 164.00 lb Heart Rate 76 /min BP Systolic Sitting 164 mmHg Pulse Ox 97% on room air BP Diastolic Sitting 80 mmHg Pulse Ox 97% on room air BMI (Body Mass Index) 31.0 kg/m2 07/09/2008 9:49am Height 61 inches 5'1" 05/11/2008 9:20am Height 61 inches 5'1" Heart Rate 70 /min BP Systolic Sitting 170 mmHg BP Diastolic Sitting 80 mmHg O2 % BldC Oximetry 95 % 04/17/2008 9:40am Height 61 inches 5'1" Weight 164.00 lb Heart Rate 76 /min BP Systolic Sitting 148 mmHg BP Diastolic Sitting 72 mmHg Body Temperature 98.7 F O2 % BldC Oximetry 92 % BMI (Body Mass Index) 31.0 kg/m2 01/03/2008 9:36am Height 61 inches 5'1" Weight 164.00 lb Heart Rate 80 /min BP Systolic Sitting 144 mmHg BP Diastolic Sitting 78 mmHg BMI (Body Mass Index) 31.0 kg/m2 11/08/2007 12:20pm Height 61 inches 5'1" Heart Rate 68 /min BP Systolic Sitting 160 mmHg BP Diastolic Sitting 80 mmHg Respiratory Rate 20 /min resp 12 after treatments O2 % BldC Oximetry 95 % repeat 92 11/03/2007 9:32am Height 61 inches 5'1" Weight 160.00 lb Heart Rate 72 /min BP Systolic Sitting 142 mmHg BP Diastolic Sitting 78 mmHg Body Temperature 99.1 F BMI (Body Mass Index) 30.2 kg/m2 07/12/2007 10:06am Weight 159.00 lb Heart Rate 80 /min BP Systolic Sitting 160 mmHg BP Diastolic Sitting 70 mmHg 03/15/2007 1:14pm Weight 165.00 lb Heart Rate 72 /min BP Systolic Sitting 170 mmHg BP Diastolic Sitting 86 mmHg Body Temperature 99.3 F Results Test Date Facility Test Result H/L Range Note Laboratory test 04/26/2018 [facility] TSH 2.34 mcIU/mL N 0.34- 5.60 [address] ([place] [address] Stim Horm) [phone] Free T4 (Free Thyroxine) 1.13 ng/dL High 0.61-1.12 2 Lipid Profile 04/26/2018 [facility] Triglycerides 112 mg/dL 3 (Trig/Chol/HDL) [address] [place] [address] [phone] Cholesterol 179 mg/dL 4 HDL Cholesterol 93.0 mg/dL 5 LDL Cholesterol 64 mg/dL 6 Basic Metabolic Panel 04/26/2018 [facility] Sodium 137 mmol/L N 135-[address] [place] [address] [phone] Potassium 4.6 mmol/L N 3.5-5.0 Chloride 98 mmol/L Low 101-111 Co2 Carbon Dioxide 31 mmol/L N 22-32 Anion Gap 8 mmol/L N 2-11 Glucose 88 mg/dL N 70-100 Blood Urea Nitrogen 25 mg/dL High 6-24 Creatinine 1.19 mg/dL High 0.51-0.95 BUN/Creatinine Ratio 21.0 High 8-20 Calcium 10.2 mg/dL N 8.6-10.3 Egfr Non- 43.1 >60 Egfr 52.2 >60 7 CBC Auto Diff 11/18/2017 [facility] White Blood 8.0 10^3/uL N 3.5-10.[address] [place] [address] [phone] Red Blood Count 3.53 10^6/uL Low 4.0-5.4 Hemoglobin 12.0 g/dL N 12.0-16.0 Hematocrit 35 % N 35-47 Mean Corpuscular Volume 100 fL High 80-97 Mean Corpuscular Hemoglobin 34 pg High 27-31 Mean Corpuscular HGB Conc 34 g/dL N 31-36 Red Cell Distribution Width 13 % N 10.5-15 Platelet Count 211 10^3/uL N 150-450 Mean Platelet Volume 7.3 um3 Low 7.4-10.4 Abs Neutrophils 6.4 10^3/uL N 1.5-7.7 Abs Lymphocytes 0.7 10^3/uL Low 1.0-4.8 Abs Monocytes 0.7 10^3/uL N 0-0.8 Abs Eosinophils 0.1 10^3/uL N 0-0.6 Abs Basophils 0 10^3/uL N 0-0.2 Abs Nucleated RBC 0 10^3/uL Granulocyte % 80.6 % N 38-83 Lymphocyte % 8.3 % Low 25-47 Monocyte % 8.9 % High 0-7 Eosinophil % 1.8 % N 0-6 Basophil % 0.4 % N 0-2 Nucleated Red Blood Cells % 0.1 Laboratory test 11/18/2017 [facility] Lactic Acid 0.9 mmol/L N 0.5-2.[address] [place] [address] [phone] Troponin-I (TnI) 0.00 ng/mL <0.04 Comp Metabolic Panel 11/18/2017 [facility] Sodium 136 mmol/L Low 139-[address] [place] [address] [phone] Potassium 4.4 mmol/L N 3.5-5.0 Chloride 102 mmol/L N 101-111 Co2 Carbon Dioxide 24 mmol/L N 22-32 Anion Gap 10 mmol/L N 2-11 Glucose 106 mg/dL High 70-100 Blood Urea Nitrogen 25 mg/dL High 6-24 Creatinine 1.02 mg/dL High 0.51-0.95 BUN/Creatinine Ratio 24.5 High 8-20 Calcium 9.9 mg/dL N 8.6-10.3 Total Protein 6.9 g/dL N 6.4-8.9 Albumin 3.9 g/dL N 3.2-5.2 Globulin 3.0 g/dL N 2-4 Albumin/Globulin Ratio 1.3 N 1-3 Total Bilirubin 0.70 mg/dL N 0.2-1.0 Alkaline Phosphatase 42 U/L N 34-104 Alt 12 U/L N 7-52 Ast 15 U/L N 13-39 Egfr Non- 51.6 >60 Egfr 66.4 >60 9 Laboratory test 11/18/2017 [facility] Blood Culture SEE RESULT [address] [place] [address] [phone] Basic Metabolic 12/15/2016 [facility] Sodium 135 mmol/L N 133- [address] [place] [address] [phone] Potassium 4.3 mmol/L N 3.5-5.0 Chloride 103 mmol/L N 101-111 Co2 Carbon Dioxide 25 mmol/L N 22-32 Anion Gap 7 mmol/L N 2-11 Glucose 92 mg/dL N 70-100 Blood Urea Nitrogen 30 mg/dL High 6-24 Creatinine 0.94 mg/dL N 0.51-0.95 BUN/Creatinine Ratio 31.9 High 8-20 Calcium 9.3 mg/dL N 8.6-10.3 Egfr Non- 56.9 N >60 Egfr 73.1 N >60 11 Basic Metabolic Panel 12/09/2016 [facility] Sodium 136 mmol/L N 133-[address] [place] [address] [phone] Potassium 4.3 mmol/L N 3.5-5.0 Chloride 103 mmol/L N 101-111 Co2 Carbon Dioxide 27 mmol/L N 22-32 Anion Gap 6 mmol/L N 2-11 Glucose 97 mg/dL N 70-100 Blood Urea Nitrogen 27 mg/dL High 6-24 Creatinine 1.01 mg/dL High 0.51-0.95 BUN/Creatinine Ratio 26.7 High 8-20 Calcium 9.7 mg/dL N 8.6-10.3 Egfr Non- 52.3 N >60 Egfr 67.3 N >60 12 CBC No Diff 12/09/2016 [facility] White Blood 6.9 10^3/uL N 3.5-10.[address] [place] [address] [phone] Red Blood Count 3.96 10^6/uL Low 4.0-5.4 Hemoglobin 13.4 g/dL N 12.0-16.0 Hematocrit 40 % N 35-47 Mean Corpuscular Volume 101 fL High 80-97 Mean Corpuscular Hemoglobin 34 pg High 27-31 Mean Corpuscular HGB Conc 34 g/dL N 31-36 Red Cell Distribution Width 14 % N 10.5-15 Platelet Count 241 10^3/uL N 150-450 Mean Platelet Volume 8 um3 N 7.4-10.4 Lipid Profile 09/23/2016 [facility] Triglycerides 62 mg/dL N 13 (Trig/Chol/HDL) [address] [place] [address] [phone] Cholesterol 149 mg/dL N 14 HDL Cholesterol 90.4 mg/dL N 15 LDL Cholesterol 46 mg/dL N 16 Laboratory test finding 09/23/2016 [facility] Ast (Sgot) 22 U/L N 13-39 [address] [place] [address] [phone] Alt 18 U/L N 7-52 Basic Metabolic Panel 04/16/2016 [facility] Sodium 135 mmol/L N 133-145 [address] [place] [address] [phone] Potassium 4.6 mmol/L N 3.5-5.0 Chloride 99 mmol/L Low 101-111 Co2 Carbon Dioxide 28 mmol/L N 22-32 Anion Gap 8 mmol/L N 2-11 Glucose 85 mg/dL N 70-100 Blood Urea Nitrogen 22 mg/dL N 6-24 Creatinine 0.99 mg/dL High 0.51-0.95 BUN/Creatinine Ratio 22.2 High 8-20 Calcium 9.9 mg/dL N 8.6-10.3 Egfr Non- 53.7 N >60 Egfr 69.1 N >60 17 Basic Metabolic 03/31/2016 [facility] Sodium 123 mmol/L Low 133-145 Panel [address] [place] [address] [phone] Potassium 4.0 mmol/L N 3.5-5.0 Chloride 91 mmol/L Low 101-111 Co2 Carbon Dioxide 30 mmol/L N 22-32 Anion Gap 2 mmol/L N 2-11 Glucose 78 mg/dL N 70-100 Blood Urea Nitrogen 26 mg/dL High 6-24 Creatinine 0.87 mg/dL N 0.51-0.95 BUN/Creatinine Ratio 29.9 High 8-20 Calcium 9.9 mg/dL N 8.6-10.3 Egfr Non- 62.3 N >60 Egfr 80.2 N >60 18 Lipid Profile 02/28/2016 [facility] Triglycerides 62 mg/dL N 19, 20 (Trig/Chol/HDL) [address] [place] [address] [phone] Cholesterol 191 mg/dL N 21 HDL Cholesterol 79.4 mg/dL N 22 LDL Cholesterol 99 mg/dL N 23 Comp Metabolic Panel 02/28/2016 [facility] Sodium 134 mmol/L N 133-145 [address] [place] [address] [phone] Potassium 4.5 mmol/L N 3.5-5.0 Chloride 98 mmol/L Low 101-111 Co2 Carbon Dioxide 31 mmol/L N 22-32 Anion Gap 5 mmol/L N 2-11 Glucose 94 mg/dL N 70-100 Blood Urea Nitrogen 22 mg/dL N 6-24 Creatinine 1.04 mg/dL High 0.51-0.95 BUN/Creatinine Ratio 21.2 High 8-20 Calcium 9.6 mg/dL N 8.6-10.3 Total Protein 6.6 g/dL N 6.4-8.9 Albumin 4.0 g/dL N 3.2-5.2 Globulin 2.6 g/dL N 2-4 Albumin/Globulin Ratio 1.5 N 1-3 Total Bilirubin 0.70 mg/dL N 0.2-1.0 Alkaline Phosphatase 36 U/L N 34-104 Alt 13 U/L N 7-52 Ast 18 U/L N 13-39 Egfr Non- 50.7 N >60 Egfr 65.2 N >60 24 Laboratory test 02/28/2016 [facility] TSH (Thyroid 2.68 mcIU/mL N 0.34-5.60 [address] Stim [place]orm) [place] [address] [phone] Comp Metabolic 02/27/2015 [facility] Sodium 135 mmol/L N 133- [address] [place] [address] [phone] Potassium 4.9 mmol/L N 3.5-5.0 Chloride 98 mmol/L Low 101-111 Co2 Carbon Dioxide 32 mmol/L N 22-32 Anion Gap 5 mmol/L N 2-11 Glucose 94 mg/dL N 70-100 Blood Urea Nitrogen 23 mg/dL N 6-24 Creatinine 0.90 mg/dL N 0.51-0.95 BUN/Creatinine Ratio 25.6 High 8-20 Calcium 9.9 mg/dL N 8.6-10.3 Total Protein 6.6 g/dL N 6.4-8.9 Albumin 4.3 g/dL N 3.2-5.2 Globulin 2.3 g/dL N 2-4 Albumin/Globulin Ratio 1.9 N 1-3 Total Bilirubin 0.90 mg/dL N 0.2-1.0 Alkaline Phosphatase 49 U/L N 34-104 Alt 12 U/L N 7-52 Ast 20 U/L N 13-39 Egfr Non- 60.1 N >60 Egfr 77.3 N >60 26 Lipid Profile 04/25/2014 [facility] Triglycerides 69 mg/dL N 27, 28 (Trig/Chol/HDL) [address] [place] [address] [phone] Cholesterol 173 mg/dL N 29 HDL Cholesterol 70.7 mg/dL N 30 LDL Cholesterol 89 mg/dL N 31 Laboratory test 04/25/2014 [facility] TSH (Thyroid 1.39 N 0.34 -5.60 [address] Stimulating IU/[place] [address] Horm) [phone] CBC Auto Diff 07/18/2013 [facility] White Blood 5.9 4.8-10.[address] Count 10^3/[place] [address] [phone] Red Blood Count 3.73 10^6/uL Low 4.0-5.4 Hemoglobin 12.8 g/dL 12.0-16.0 Hematocrit 38 % 35-47 Mean Corpuscular Volume 102 fL High 80-97 Mean Corpuscular Hemoglobin 34 pg High 27-31 Mean Corpuscular HGB Conc 34 g/dL 31-36 Red Cell Distribution Width 13 % 10.5-15 Platelet Count 259 10^3/uL 150-450 Mean Platelet Volume 7 um3 Low 7.4-10.4 Abs Neutrophils 3.4 10^3/uL 1.5-7.7 Abs Lymphocytes 1.8 10^3/uL 1.0-4.8 Abs Monocytes 0.5 10^3/uL 0-0.8 Abs Eosinophils 0.2 10^3/uL 0-0.6 Abs Basophils 0.1 10^3/uL 0-0.2 Abs Nucleated RBC 0 10^3/uL Granulocyte % 57.9 % 38-83 Lymphocyte % 30.6 % 25-47 Monocyte % 7.7 % 1-9 Eosinophil % 2.8 % 0-6 Basophil % 1.0 % 0-2 Nucleated Red Blood Cells % 0.1 Inr/Protime 07/18/2013 [facility] Inr 0.84 Low 0.85-1.[address] [place] [address] [phone] Comp Metabolic 07/18/2013 [facility] Sodium 137 mmol/L 133- 145 Panel [address] [place] [address] [phone] Potassium 2.7 mmol/L Low 3.5-5.0 Chloride 101 mmol/L 101-111 Co2 Carbon Dioxide 26.0 mmol/L 22-32 Anion Gap 10.0 mmol/L 2-11 Glucose 80 mg/dL 70-100 Blood Urea Nitrogen 31 mg/dL High 6-24 Creatinine 1.10 mg/dL 0.50-1.40 BUN/Creatinine Ratio 28.2 High 8-20 Calcium 9.5 mg/dL 8.1-9.9 Total Protein 6.5 g/dL 6.2-8.1 Albumin 4.0 g/dL 3.2-5.2 Globulin 2.5 g/dL 2-4 Albumin/Globulin Ratio 1.6 1-3 Total Bilirubin 0.8 mg/dL 0.4-1.5 Alkaline Phosphatase 40 U/L 30-110 Alt 14 U/L 14-54 Ast 19 U/L 12-42 Egfr Non- 47.8 >60 Egfr 61.5 >60 34 Basic Metabolic Panel 02/22/2013 [facility] Sodium 137 mmol/L 133-145 [address] [place] [address] [phone] Potassium 3.6 mmol/L 3.5-5.0 Chloride 101 mmol/L 101-111 Co2 Carbon Dioxide 26.0 mmol/L 22-32 Anion Gap 10.0 mmol/L 2-11 Glucose 95 mg/dL 70-100 Blood Urea Nitrogen 24 mg/dL 6-24 Creatinine 1.00 mg/dL 0.50-1.40 BUN/Creatinine Ratio 24.0 High 8-20 Calcium 10.0 mg/dL High 8.1-9.9 Egfr Non- 53.5 >60 Egfr 68.8 >60 35 Comp Metabolic Panel 12/23/2012 [facility] Sodium 137 mmol/L 133-145 [address] [place] [address] [phone] Potassium 4.8 mmol/L 3.5-5.0 Chloride 97 mmol/L Low 101-111 Co2 Carbon Dioxide 32.0 mmol/L 22-32 Anion Gap 8.0 mmol/L 2-11 Glucose 96 mg/dL 70-100 Blood Urea Nitrogen 23 mg/dL 6-24 Creatinine 1.00 mg/dL 0.50-1.40 BUN/Creatinine Ratio 23.0 High 8-20 Calcium 10.2 mg/dL High 8.1-9.9 Total Protein 6.3 g/dL 6.2-8.1 Albumin 4.0 g/dL 3.2-5.2 Globulin 2.3 g/dL 2-4 Albumin/Globulin Ratio 1.7 1-3 Total Bilirubin 1.0 mg/dL 0.4-1.5 Alkaline Phosphatase 39 U/L 30-110 Alt 16 U/L 14-54 Ast 23 U/L 12-42 Egfr Non- 53.5 >60 Egfr 68.8 >60 36 CBC Auto 12/23/2012 [facility] White Blood 4.1 10^3/uL Low 4.8 -10.[address] [place] [address] [phone] Red Blood Count 3.96 10^6/uL Low 4.0-5.4 Hemoglobin 13.7 g/dL 12.0-16.0 Hematocrit 40 % 35-47 Mean Corpuscular Volume 101 fL High 80-97 Mean Corpuscular Hemoglobin 35 pg High 27-31 Mean Corpuscular HGB Conc 34 g/dL 31-36 Red Cell Distribution Width 13 % 10.5-15 Platelet Count 255 10^3/uL 150-450 Mean Platelet Volume 8 um3 7.4-10.4 Abs Neutrophils 2.0 10^3/uL 1.5-7.7 Abs Lymphocytes 1.4 10^3/uL 1.0-4.8 Abs Monocytes 0.4 10^3/uL 0-0.8 Abs Eosinophils 0.2 10^3/uL 0-0.6 Abs Basophils 0 10^3/uL 0-0.2 Abs Nucleated RBC 0.01 10^3/uL Granulocyte % 49.5 % 38-83 Lymphocyte % 34.7 % 25-47 Monocyte % 10.7 % High 1-9 Eosinophil % 4.5 % 0-6 Basophil % 0.6 % 0-2 Nucleated Red Blood Cells % 0.3 Laboratory 12/23/2012 [facility] TSH (Thyroid 2.08 0.34-5.60 37 test finding [address] Stimulating Horm) miu/[place] [address] [phone] Lipid Profile 12/23/2012 [facility] Triglycerides 76 mg/dL 40 -200 (Trig/Chol/HDL [address] ) [place] [address] [phone] Cholesterol 216 mg/dL High Less than 200 HDL Cholesterol 81 mg/dL High 40-60 38 Cholesterol/HDL Ratio 2.7 Average 1-4.44 LDL Cholesterol 119.8 mg/dL High Less Than [address] [facility] 12/04/2011 [facility] TSH 0.82 MIU/ML 0.34- 5.[address] [place] [address] [phone] Comp Metabolic 12/04/2011 [facility] Sodium 134 mmol/L Low 135 -[address] [place] [address] [phone] Potassium 4.2 mmol/L 3.5-5.0 Chloride 95 mmol/L Low 101-111 Co2 (Carbon Dioxide) 32.0 mmol/L 22-32 Anion Gap 7.0 mmol/L 2-11 40 Glucose 92 mg/dL 70-100 BUN 19 mg/dL 6-24 Creatinine 1.1 mg/dL 0.50-1.40 One Over Creatinine 0.90 BUN/Creatinine Ratio 17.3 8-20 Calcium 9.6 mg/dL 8.1-9.9 Total Protein 6.1 GM/DL Low 6.2-8.1 Albumin 4.1 GM/DL 3.2-5.2 Globulin 2.0 GM/DL 2-4 Albumin/Globulin Ratio 2.1 1-3 Bilirubin Total 0.7 mg/dL 0.4-1.5 41 Alkaline Phosphatase 45 U/L 30-110 Alt (SGPT) 22 U/L 14-54 Ast (Sgot) 29 U/L 12-42 eGFR Non- 48.0 > 60 eGFR 61.8 > 60 42 Lipid Profile 12/04/2011 [facility] Triglyceride 83 mg/dL 40- 200 (Trig/Chol/HDL) [address] [place] [address] [phone] Cholesterol 212 mg/dL High Less Than 200 43 High Density Lipoprotein 85 mg/dL High 40-60 44 Cholesterol/HDL Ratio 2.49 AVERAGE 1-4.44 Low Density Lipoprotein 110 mg/dL High Less Than 100 45 CBC Auto Diff 12/04/2011 [facility] White Blood 4.7 CUMM Low 4.8-10.[address] [place] [address] [phone] Red Cell Count 3.79 CUMM Low 4.2-5.4 Hemoglobin 13.5 g/dL 12.0-16.0 Hematocrit 38 % 35-47 Mean Corpuscular Volume 101 um3 High 79-97 Mean Corpuscular Hemoglob 36 pg High 27-31 Mean Corpuscular HGB Cone 35 g/dL 32-36 Redcell Distribution WDTH 14 % 10.5-15 Platelet Count 256 CUMM 150-450 Mean Platelet Volume 8.3 um3 7.4-10.4 Gran % 56.4 % 38-83 Lymph % 26.5 % 25-47 Mononuclear % 10.8 % High 1-9 Eosinophil % 5.5 % 0-6 Basophil % 0.8 % 0-2 Abs Lymphs 1.2 1.0-4.8 Abs Mononuclear 0.5 0-0.8 Absolute Neutrophil Count 2.7 1.5-7.7 Abs Eosinophils 0.3 0-0.6 Abs Basophils 0 0-0.2 Laboratory test 05/20/2011 [facility] Hemoglobin A1c 5.4 5-7 finding Lipid Profile 09/09/2010 [facility] Triglyceride 57 mg/dL 40- 200 (Trig/Chol/HDL) [address] [place] [address] [phone] Cholesterol 202 mg/dL High Less Than 200 46 High Density Lipoprotein 70 mg/dL High 40-60 47 Cholesterol/HDL Ratio 2.89 AVERAGE 1-4.44 Low Density Lipoprotein 121 mg/dL High Less Than 100 48 Laboratory test 09/09/2010 [facility] TSH 1.45 MIU/ML 0.34- 5.60 finding [address] [place] [address] [phone] Thyroxine 7.7 g/dL 5-12 Basic Metabolic 09/09/2010 [facility] Sodium 131 mmol/L Low 135-145 Panel [address] [place] [address] [phone] Potassium 3.8 mmol/L 3.5-5.0 Chloride 94 mmol/L Low 101-111 Co2 (Carbon Dioxide) 31.0 mmol/L 22-32 Anion Gap 6.0 mmol/L 2-11 49 Glucose 111 mg/dL High 70-100 BUN 15 mg/dL 6-24 Creatinine 1.00 mg/dL 0.50-1.40 One Over Creatinine 1.00 BUN/Creatinine Ratio 15.0 8-20 Calcium 9.2 mg/dL 8.1-9.9 eGFR Non- 57.1 > 60 eGFR 69.1 > 60 50 Laboratory test 09/09/2010 [facility] Hemoglobin A1c 5.5 % Less Than [address] 6.0 [place] [address] [phone] DR [facility] 02/13/2010 [facility] TSH 2.42 0.34-5.[address] MIU/[place] [address] [phone] Comp Metabolic 02/13/2010 [facility] Sodium 133 Low 135-[address] mmol/[place] [address] [phone] Potassium 4.3 mmol/L 3.5-5.0 Chloride 92 mmol/L Low 101-111 Co2 (Carbon Dioxide) 32.0 mmol/L 22-32 Anion Gap 9.0 mmol/L 2-11 52 Glucose 109 mg/dL High 70-100 53 BUN 16 mg/dL 6-24 Creatinine 0.90 mg/dL 0.50-1.40 One Over Creatinine 1.10 BUN/Creatinine Ratio 17.8 8-20 Calcium 9.6 mg/dL 8.1-9.9 54 Total Protein 6.1 GM/DL Low 6.2-8.1 Albumin 4.1 GM/DL 3.2-5.2 Globulin 2.0 GM/DL 2-4 Albumin/Globulin Ratio 2.1 1-3 Bilirubin Total 1.0 mg/dL 0.4-1.5 55 Alkaline Phosphatase 32 U/L 30-110 Alt (SGPT) 16 U/L 14-54 Ast (Sgot) 23 U/L 12-42 eGFR Non- 64.7 > 60 eGFR 78.3 > 60 56 Lipid Profile 02/13/2010 [facility] Triglyceride 41 mg/dL 40- 200 (Trig/Chol/HDL) [address] [place] [address] [phone] Cholesterol 222 mg/dL High Less Than 200 57 High Density Lipoprotein 69 mg/dL High 40-60 58 Cholesterol/HDL Ratio 3.22 AVERAGE 1-4.44 Low Density Lipoprotein 145 mg/dL High Less Than 100 59 CBC With 02/13/2010 [facility] White Blood 3.8 CUMM Low 4.8- 10.8 Electronic Diff [address] [place] [address] [phone] Red Cell Count 3.86 CUMM Low 4.2-5.4 Hemoglobin 13.2 g/dL 12.0-16.0 Hematocrit 39 % 35-47 Mean Corpuscular Volume 100 um3 High 79-97 Mean Corpuscular Hemoglob 34 pg High 27-31 Mean Corpuscular HGB Cone 34 g/dL 32-36 Redcell Distribution WDTH 13 % 10.5-15 Platelet Count 266 CUMM 150-450 Mean Platelet Volume 7.9 um3 7.4-10.4 Gran % 56.9 % 38-83 Lymph % 28.0 % 25-47 Mononuclear % 9.6 % High 1-9 Eosinophil % 4.6 % 0-6 Basophil % 0.9 % 0-2 Abs Lymphs 1.1 1.0-4.8 Abs Mononuclear 0.4 0-0.8 Absolute Neutrophil Count 2.1 1.5-7.7 Abs Eosinophils 0.2 0-0.6 Abs Basophils 0 0-0.2 Laboratory test 02/13/2010 [facility] Thyroxine Free 0.93 NG/ML 0.61-1.24 [address] [place] [address] [phone] Hemoglobin A1c 6.0 % Less Than 6.0 61 CBC With 01/01/2009 [facility] White Blood 5.5 CUMM 4.8-10.8 Electronic Diff [address] [place] [address] [phone] Red Cell Count 4.13 CUMM Low 4.2-5.4 Hemoglobin 14.3 g/dL 12.0-16.0 Hematocrit 40 % 35-47 Mean Corpuscular Volume 98 um3 High 79-97 Mean Corpuscular Hemoglob 35 pg High 27-31 Mean Corpuscular HGB Cone 35 g/dL 32-36 Redcell Distribution WDTH 13 % 10.5-15 Platelet Count 237 CUMM 150-450 Mean Platelet Volume 8.1 um3 7.4-10.4 Gran % 56.1 % 38-83 Lymph % 27.2 % 25-47 Mononuclear % 10.3 % High 1-9 Eosinophil % 5.6 % 0-6 Basophil % 0.8 % 0-2 Abs Lymphs 1.5 1.0-4.8 Abs Mononuclear 0.6 0-0.8 Absolute Neutrophil Count 3.1 1.5-7.7 Abs Eosinophils 0.3 0-0.6 Abs Basophils 0 0-0.2 Comp Metabolic Panel 01/01/2009 [facility] Sodium 138 mmol/L 135-[address] [place] [address] [phone] Potassium 5.1 mmol/L High 3.5-5.0 Chloride 99 mmol/L Low 101-111 Co2 (Carbon Dioxide) 33.0 mmol/L High 22-32 Anion Gap 6.0 mmol/L 2-11 62 Glucose 110 mg/dL High 70-100 63 BUN 22 mg/dL 6-24 Creatinine 1.10 mg/dL 0.50-1.40 One Over Creatinine 0.90 BUN/Creatinine Ratio 20.0 8-20 Calcium 10.2 mg/dL High 8.1-9.9 64 Total Protein 6.6 GM/DL 6.2-8.1 Albumin 4.1 GM/DL 3.2-5.2 Globulin 2.5 GM/DL 2-4 Albumin/Globulin Ratio 1.6 1-3 Bilirubin Total 1.1 mg/dL 0.4-1.5 65 Alkaline Phosphatase 46 U/L 30-110 Alt (SGPT) 19 U/L 14-54 Ast (Sgot) 24 U/L 12-42 Lipid Profile 01/01/2009 [facility] Triglyceride 92 mg/dL 40- 200 (Trig/Chol/HDL) [address] [place] [address] [phone] Cholesterol 226 mg/dL High Less Than 200 66 High Density Lipoprotein 66 mg/dL High 40-60 67 Cholesterol/HDL Ratio 3.42 AVERAGE 1-4.44 Low Density Lipoprotein 142 mg/dL High Less Than 100 68 Laboratory test 01/01/2009 [facility] TSH 2.04 MIU/ML 0.34- 5.60 finding [address] [place] [address] [phone] Laboratory test 11/22/2008 [facility] Amylase 79 U/L 30-125 finding [address] [place] [address] [phone] Lipase 42 U/L 22-51 Troponin-I (TnI) 0.02 NG/ML 0-0.06 69 P33S 11/22/2008 [facility] Sodium 131 mmol/L Low 135-145 [address] [place] [address] [phone] Potassium 3.4 mmol/L Low 3.5-5.0 Chloride 94 mmol/L Low 101-111 Co2 (Carbon Dioxide) 27.0 mmol/L 22-32 Anion Gap 10.0 mmol/L 2-11 70 Glucose 102 mg/dL High 70-100 71 BUN 18 mg/dL 6-24 Creatinine 0.90 mg/dL 0.50-1.40 One Over Creatinine 1.10 BUN/Creatinine Ratio 20.0 8-20 Calcium 8.8 mg/dL 8.1-9.9 72 Total Protein 6.6 GM/DL 6.2-8.1 Albumin 3.7 GM/DL 3.2-5.2 Globulin 2.9 GM/DL 2-4 Albumin/Globulin Ratio 1.3 1-3 Bilirubin Total 0.8 mg/dL 0.4-1.5 Alkaline Phosphatase 49 U/L 30-110 Alt (SGPT) 21 U/L 14-54 Ast (Sgot) 33 U/L 12-42 CBC With 11/22/2008 [facility] White Blood 5.5 CUMM 4.8-10.8 Electronic Diff [address] [place] [address] [phone] Red Cell Count 3.78 CUMM Low 4.2-5.4 Hemoglobin 12.9 g/dL 12.0-16.0 Hematocrit 37 % 35-47 Mean Corpuscular Volume 97 um3 79-97 Mean Corpuscular Hemoglob 34 pg High 27-31 Mean Corpuscular HGB Cone 35 g/dL 32-36 Redcell Distribution WDTH 13 % 10.5-15 Platelet Count 286 CUMM 150-450 Mean Platelet Volume 6.9 um3 Low 7.4-10.4 Gran % 48.7 % 38-83 Lymph % 34.4 % 25-47 Mononuclear % 9.0 % 1-9 Eosinophil % 6.7 % High 0-6 Basophil % 1.2 % 0-2 Abs Lymphs 1.9 1.0-4.8 Abs Mononuclear 0.5 0-0.8 Absolute Neutrophil Count 2.7 1.5-7.7 Abs Eosinophils 0.4 0-0.6 Abs Basophils 0.1 0-0.2 Lipid Profile 12/19/2007 [facility] Triglyceride 171 mg/dL 40 -200 73 (Trig/Chol/HDL) [address] [place] [address] [phone] Cholesterol 210 mg/dL High Less Than 200 74 High Density Lipoprotein 50 mg/dL 40-60 75 Cholesterol/HDL Ratio 4.20 AVERAGE 1-4.44 Low Density Lipoprotein 126 mg/dL High Less Than 100 76 Comp Metabolic Panel 12/19/2007 [facility] Sodium 138 mmol/L 135-[address] [place] [address] [phone] Potassium 4.6 mmol/L 3.5-5.0 Chloride 103 mmol/L 101-111 Co2 (Carbon Dioxide) 30.0 mmol/L 22-32 Anion Gap 5.0 mmol/L 2-11 77 Glucose 91 mg/dL 70-105 BUN 36 mg/dL High 6-24 Creatinine 1.4 mg/dL 0.5-1.4 One Over Creatinine 0.71 BUN/Creatinine Ratio 25.7 High 8-20 Calcium 9.2 mg/dL 8.7-10.2 Total Protein 6.7 GM/DL 6.2-8.1 Albumin 3.8 GM/DL 3.2-5.2 Globulin 2.9 GM/DL 2-4 Albumin/Globulin Ratio 1.3 1-3 Bilirubin Total 0.6 mg/dL 0.4-1.5 Alkaline Phosphatase 49 U/L 30-110 Alt (SGPT) 15 U/L 14-54 Ast (Sgot) 21 U/L 12-42 CBC With 12/19/2007 [facility] White Blood 6.3 CUMM 4.8-10.8 Electronic Diff [address] [place] [address] [phone] Red Cell Count 4.20 CUMM 4.2-5.4 Hemoglobin 14.0 g/dL 12.0-16.0 Hematocrit 41 % 35-47 Mean Corpuscular Volume 97 um3 79-97 Mean Corpuscular Hemoglob 33 pg High 27-31 Mean Corpuscular HGB Cone 34 g/dL 32-36 Redcell Distribution WDTH 13 % 10.5-15 Platelet Count 251 CUMM 150-450 Mean Platelet Volume 8.6 um3 7.4-10.4 Gran % 56.9 % 38-83 Lymph % 24.2 % 20-45 Mononuclear % 9.3 % High 1-9 Eosinophil % 8.9 % High 0-6 Basophil % 0.7 % 0-2 Abs Lymphs 1.5 1.0-4.8 Abs Mononuclear 0.6 0-0.8 Absolute Neutrophil Count 3.6 1.5-7.7 Abs Eosinophils 0.6 0-0.6 Abs Basophils 0 0-0.2 Laboratory test 12/19/2007 [facility] TSH 1.03 MIU/ML 0.34- 5.[address] [place] [address] [phone] Basic Metabolic 07/12/2007 [facility] One Over 1.00 Panel 101 [facility] [address] [phone] Anion Gap 8.0 mmol/L 2-11 78 BUN 24 mg/dL 6-24 Calcium 9.8 mg/dL 8.7-10.2 Chloride 98 mmol/L Low 101-111 Co2 (Carbon Dioxide) 30.0 mmol/L 22-32 Glucose 94 mg/dL 70-105 Potassium 4.3 mmol/L 3.5-5.0 Sodium 136 mmol/L 135-145 BUN/Creatinine Ratio 24.0 High 8-20 Creatinine 1.0 mg/dL 0.5-1.4 Laboratory test 06/15/2007 [facility] Free Thyroxine 1.04 NG/ML 0.61-1.24 79 finding [address] [place] [address] [phone] Lipid Profile 06/15/2007 [facility] Cholesterol/HD 3.83 1- 4.44 (Trig/Chol/HDL) [address] [facility] [place] [address] [phone] Cholesterol 241 mg/dL High Less Than 200 80 Triglyceride 104 mg/dL 40-200 High Density Lipoprotein 63 mg/dL High 40-60 81 Low Density Lipoprotein 157 mg/dL High Less Than 100 82 Laboratory test 06/15/2007 [facility] TSH 1.86 MIU/ML 0.34- 5.60 finding [address] [place] [address] [phone] 1 FASTING 2 FASTING 3 Desirable: <150 Borderline High: 150-199 High: 200-499 Very High: >500 4 Desirable: <200 Borderline High: 200-239 High: >239 5 Low: <40 Desirable: 40-60 High: >60 6 Desirable: <100 Near Optimal: 100-129 Borderline High: 130-159 High: 160-189 Very High: >189 7 Because ethnic data is not always readily available, this report includes an eGFR for both -Americans and non- Americans. The National Kidney Disease Education Program (NKDEP) does not endorse the use of the MDRD equation for patients that are not between the ages of 18 and 70, are , have extremes of body size, muscle mass, or nutritional status, or are non- or non-. According to the National Kid[employer], irrespective of diagnosis, the stage of the disease is based on the level of kidney function: Stage Description GFR(mL/min/1.73 m(2)) 1 Kidney damage with normal or decreased GFR 90 2 Kidney damage with mild decrease in GFR 60-89 3 Moderate decrease in GFR 30-59 4 Severe decrease in GFR 15-29 5 Kidney failure <15 (or dialysis) 8 [facility] Severe Sepsis and Septic Shock Management Bundle Measure requires all lactic acids initially measuring >2.0 mmol/L be repeated. 9 Because ethnic data is not always readily available, this report includes an eGFR for both -Americans and non- Americans. The National Kidney Disease Education Program (NKDEP) does not endorse the use of the MDRD equation for patients that are not between the ages of 18 and 70, are , have extremes of body size, muscle mass, or nutritional status, or are non- or non-. According to the National Kid[employer] Foundation, irrespective of diagnosis, the stage of the disease is based on the level of kidney function: Stage Description GFR(mL/min/1.73 m(2)) 1 Kidney damage with normal or decreased GFR 90 2 Kidney damage with mild decrease in GFR 60-89 3 Moderate decrease in GFR 30-59 4 Severe decrease in GFR 15-29 5 Kidney failure <15 (or dialysis) 10 SEE RESULT BELOW Name: YAZMIN SHAH : [address]: Tarik Navarro MD Acct: [id number] Unit: [id number] AGE: 82 Location: ED Re11/18/17 SEX: F Status: DEP ER SPEC: [id number] ALENA: 11/18/[address] [facility] [address]: Tarik Navarro MD REQ: [id number] RECD: 11/18/17 STATUS: SIENNA RICK DR: Gustavo Wells III, MD _ SOURCE: BLOOD,VENO SPDES: ORDERED: Blood Cult Procedure Result Reported Site Aerobic Culture Bottle Final 11/23/17- 934 ML No Growth Day 5 Anaerobic Culture Bottle Final 11/23/17- 934 ML No Growth Day 5 * ML - Main Lab . END OF REPORT DEPARTMENT OF PATHOLOGY, [address] [place] [address] Evan Witt M.D. Director [facility] # [id number] 11 Because ethnic data is not always readily available, this report includes an eGFR for both -Americans and non- Americans. The National Kidney Disease Education Program (NKDEP) does not endorse the use of the MDRD equation for patients that are not between the ages of 18 and 70, are , have extremes of body size, muscle mass, or nutritional status, or are non- or non-. According to the National Kidney Foundation, irrespective of diagnosis, the stage of the disease is based on the level of kidney function: Stage Description GFR(mL/min/1.73 m(2)) 1 Kidney damage with normal or decreased GFR 90 2 Kidney damage with mild decrease in GFR 60-89 3 Moderate decrease in GFR 30-59 4 Severe decrease in GFR 15-29 5 Kidney failure <15 (or dialysis) 12 Because ethnic data is not always readily available, this report includes an eGFR for both -Americans and non- Americans. The National Kidney Disease Education Program (NKDEP) does not endorse the use of the MDRD equation for patients that are not between the ages of 18 and 70, are , have extremes of body size, muscle mass, or nutritional status, or are non- or non-. According to the National Kidney Foundation, irrespective of diagnosis, the stage of the disease is based on the level of kidney function: Stage Description GFR(mL/min/1.73 m(2)) 1 Kidney damage with normal or decreased GFR 90 2 Kidney damage with mild decrease in GFR 60-89 3 Moderate decrease in GFR 30-59 4 Severe decrease in GFR 15-29 5 Kidney failure <15 (or dialysis) 13 Desirable <150 Borderline high 150-199 High 200-499 Very High >500 14 Desirable <200 Borderline high 200-239 High >239 15 Low <40 Desirable: 40-60 High: >60 16 Desirable: <100 mg/dL Near Optimal: 100-129 mg/dL Borderline High: 130-159 mg/dL High: 160-189 mg/dL Very High: >189 mg/dL 17 Because ethnic data is not always readily available, this report includes an eGFR for both -Americans and non- Americans. The National Kidney Disease Education Program (NKDEP) does not endorse the use of the MDRD equation for patients that are not between the ages of 18 and 70, are , have extremes of body size, muscle mass, or nutritional status, or are non- or non-. According to the National Kidney Foundation, irrespective of diagnosis, the stage of the disease is based on the level of kidney function: Stage Description GFR(mL/min/1.73 m(2)) 1 Kidney damage with normal or decreased GFR 90 2 Kidney damage with mild decrease in GFR 60-89 3 Moderate decrease in GFR 30-59 4 Severe decrease in GFR 15-29 5 Kidney failure <15 (or dialysis) 18 Because ethnic data is not always readily available, this report includes an eGFR for both -Americans and non- Americans. The National Kidney Disease Education Program (NKDEP) does not endorse the use of the MDRD equation for patients that are not between the ages of 18 and 70, are , have extremes of body size, muscle mass, or nutritional status, or are non- or non-. According to the National Kidney Foundation, irrespective of diagnosis, the stage of the disease is based on the level of kidney function: Stage Description GFR(mL/min/1.73 m(2)) 1 Kidney damage with normal or decreased GFR 90 2 Kidney damage with mild decrease in GFR 60-89 3 Moderate decrease in GFR 30-59 4 Severe decrease in GFR 15-29 5 Kidney failure <15 (or dialysis) 19 [id number] 20 Desirable <150 Borderline high 150-199 High 200-499 Very High >500 21 Desirable <200 Borderline high 200-239 High >239 22 Low <40 Desirable: 40-60 High: >60 23 Desirable: <100 mg/dL Near Optimal: 100-129 mg/dL Borderline High: 130-159 mg/dL High: 160-189 mg/dL Very High: >189 mg/dL 24 Because ethnic data is not always readily available, this report includes an eGFR for both -Americans and non- Americans. The National Kidney Disease Education Program (NKDEP) does not endorse the use of the MDRD equation for patients that are not between the ages of 18 and 70, are , have extremes of body size, muscle mass, or nutritional status, or are non- or non-. According to the National Kidney Foundation, irrespective of diagnosis, the stage of the disease is based on the level of kidney function: Stage Description GFR(mL/min/1.73 m(2)) 1 Kidney damage with normal or decreased GFR 90 2 Kidney damage with mild decrease in GFR 60-89 3 Moderate decrease in GFR 30-59 4 Severe decrease in GFR 15-29 5 Kidney failure <15 (or dialysis) 25 [id number] 26 Because ethnic data is not always readily available, this report includes an eGFR for both -Americans and non- Americans. The National Kidney Disease Education Program (NKDEP) does not endorse the use of the MDRD equation for patients that are not between the ages of 18 and 70, are , have extremes of body size, muscle mass, or nutritional status, or are non- or non-. According to the National Kidney Foundation, irrespective of diagnosis, the stage of the disease is based on the level of kidney function: Stage Description GFR(mL/min/1.73 m(2)) 1 Kidney damage with normal or decreased GFR 90 2 Kidney damage with mild decrease in GFR 60-89 3 Moderate decrease in GFR 30-59 4 Severe decrease in GFR 15-29 5 Kidney failure <15 (or dialysis) 27 FASTING 28 Desirable <150 Borderline high 150-199 High 200-499 Very High >500 29 Desirable <200 Borderline high 200-239 High >239 30 Low <40 Desirable: 40-60 High: >60 31 Desirable <100 Near Optimal 100-129 Borderline high 130-159 High 160-189 Very High >189 32 FASTING 33 Please note the change in the INR reference range effective 13. 34 Because ethnic data is not always readily available, this report includes an eGFR for both -Americans and non- Americans. The National Kidney Disease Education Program (NKDEP) does not endorse the use of the MDRD equation for patients that are not between the ages of 18 and 70, are , have extremes of body size, muscle mass, or nutritional status, or are non- or non-. According to the National Kidney Foundation, irrespective of diagnosis, the stage of the disease is based on the level of kidney function: Stage Description GFR(mL/min/1.73 m(2)) 1 Kidney damage with normal or decreased GFR 90 2 Kidney damage with mild decrease in GFR 60-89 3 Moderate decrease in GFR 30-59 4 Severe decrease in GFR 15-29 5 Kidney failure <15 (or dialysis) 35 Because ethnic data is not always readily available, this report includes an eGFR for both -Americans and non- Americans. The National Kidney Disease Education Program (NKDEP) does not endorse the use of the MDRD equation for patients that are not between the ages of 18 and 70, are , have extremes of body size, muscle mass, or nutritional status, or are non- or non-. According to the National Kidney Foundation, irrespective of diagnosis, the stage of the disease is based on the level of kidney function: Stage Description GFR(mL/min/1.73 m(2)) 1 Kidney damage with normal or decreased GFR 90 2 Kidney damage with mild decrease in GFR 60-89 3 Moderate decrease in GFR 30-59 4 Severe decrease in GFR 15-29 5 Kidney failure <15 (or dialysis) 36 Because ethnic data is not always readily available, this report includes an eGFR for both -Americans and non- Americans. The National Kidney Disease Education Program (NKDEP) does not endorse the use of the MDRD equation for patients that are not between the ages of 18 and 70, are , have extremes of body size, muscle mass, or nutritional status, or are non- or non-. According to the National Kidney Foundation, irrespective of diagnosis, the stage of the disease is based on the level of kidney function: Stage Description GFR(mL/min/1.73 m(2)) 1 Kidney damage with normal or decreased GFR 90 2 Kidney damage with mild decrease in GFR 60-89 3 Moderate decrease in GFR 30-59 4 Severe decrease in GFR 15-29 5 Kidney failure <15 (or dialysis) 37 FASTING 38 HDL Interpretation: Undesirable: High Risk: Less than 40 MG/DL Desirable: Low Risk: Greater than 60 MG/DL 39 LDL Interpretation: Low Risk Optimal Level: LDL Less than 100 MG/DL Near or Above Optimal: LDL 100-129 MG/DL Borderline High Risk: LDL 130-159 MG/DL High Risk: LDL 160-189 MG/DL Very High Risk: LDL Greater than 189 MG/DL 40 Anion gap measurement may be of limited value in the presence of any alkalosis, especially in a combined acid base disorder. . 41 A metabolite of Naproxen, O-desmethylnaproxen, has been shown to interfere with the [place] method for measuring total bilirubin. Samples from patients who have taken Naproxen have shown spurious elevation in total bilirubin levels. 42 Because ethnic data is not always readily available, this report includes an eGFR for both -Americans and non- Americans. The National Kidney Disease Education Program (NKDEP) does not endorse the use of the MDRD equation for patients that are not between the ages of 18 and 70, are , have extremes of body size, muscle mass, or nutritional status, or are non- or non-. According to the National Kidney Foundation, irrespective of diagnosis, the stage of the disease is based on the level of kidney function: Stage Description GFR(mL/min/1.73 m(2)) 1 Kidney damage with normal or decreased GFR 90 2 Kidney damage with mild decrease in GFR 60-89 3 Moderate decrease in GFR 30-59 4 Severe decrease in GFR 15-29 5 Kidney failure <15 (or dialysis) 43 CHOLESTEROL INTERPRETATION: Desirable: Less than 200 MG/DL Borderline-High Risk: 200-239 MG/DL High-Risk: 240 MG/DL and over 44 HDL INTERPRETATION: Undesirable: High Risk: Less than 40 MG/DL Desirable: Low Risk: Greater than 60 MG/DL 45 LDL INTERPRETATION: Low Risk Optimal Level: LDL Less than 100 MG/DL Near or Above Optimal: LDL 100-129 MG/DL Borderline High Risk: LDL 130-159 MG/DL High Risk: LDL 160-189 MG/DL Very High Risk: LDL Greater than 189 MG/DL 46 CHOLESTEROL INTERPRETATION: Desirable: Less than 200 MG/DL Borderline-High Risk: 200-239 MG/DL High-Risk: 240 MG/DL and over 47 HDL INTERPRETATION: Undesirable: High Risk: Less than 40 MG/DL Desirable: Low Risk: Greater than 60 MG/DL 48 LDL INTERPRETATION: Low Risk Optimal Level: LDL Less than 100 MG/DL Near or Above Optimal: LDL 100-129 MG/DL Borderline High Risk: LDL 130-159 MG/DL High Risk: LDL 160-189 MG/DL Very High Risk: LDL Greater than 189 MG/DL 49 Anion gap measurement may be of limited value in the presence of any alkalosis, especially in a combined acid base disorder. . 50 Because ethnic data is not always readily available, this report includes an eGFR for both -Americans and non- Americans. The National Kidney Disease Education Program (NKDEP) does not endorse the use of the MDRD equation for patients that are not between the ages of 18 and 70, are , have extremes of body size, muscle mass, or nutritional status, or are non- or non-. According to the National Kidney Foundation, irrespective of diagnosis, the stage of the disease is based on the level of kidney function: Stage Description GFR(mL/min/1.73 m(2)) 1 Kidney damage with normal or decreased GFR 90 2 Kidney damage with mild decrease in GFR 60-89 3 Moderate decrease in GFR 30-59 4 Severe decrease in GFR 15-29 5 Kidney failure <15 (or dialysis) 51 THERAPEUTIC TARGET FOR THE TREATMENT OF DIABETES MELLITUS PATIENTS IS <7% HBA1C, AND IN SELECTIVE PATIENTS <6.0%. PLEASE REFER TO [place] [employer] DIABETIC CARE GUIDELINES FOR FURTHER INFORMATION. 52 Anion gap measurement may be of limited value in the presence of any alkalosis, especially in a combined acid base disorder. . 53 Note change in reference range as of 04/05/08. The change was based on recommendations from the [place] [employer]. 54 Please note change in reference range effective 08 . 55 A metabolite of Naproxen, O-desmethylnaproxen, has been shown to interfere with the Jendrassik-[place] method for measuring total bilirubin. Samples from patients who have taken Naproxen have shown spurious elevation in total bilirubin levels. 56 Because ethnic data is not always readily available, this report includes an eGFR for both -Americans and non- Americans. The National Kidney Disease Education Program (NKDEP) does not endorse the use of the MDRD equation for patients that are not between the ages of 18 and 70, are , have extremes of body size, muscle mass, or nutritional status, or are non- or non-. According to the National Kidney Foundation, irrespective of diagnosis, the stage of the disease is based on the level of kidney function: Stage Description GFR(mL/min/1.73 m(2)) 1 Kidney damage with normal or decreased GFR 90 2 Kidney damage with mild decrease in GFR 60-89 3 Moderate decrease in GFR 30-59 4 Severe decrease in GFR 15-29 5 Kidney failure <15 (or dialysis) 57 CHOLESTEROL INTERPRETATION: Desirable: Less than 200 MG/DL Borderline-High Risk: 200-239 MG/DL High-Risk: 240 MG/DL and over 58 HDL INTERPRETATION: Undesirable: High Risk: Less than 40 MG/DL Desirable: Low Risk: Greater than 60 MG/DL 59 LDL INTERPRETATION: Low Risk Optimal Level: LDL Less than 100 MG/DL Near or Above Optimal: LDL 100-129 MG/DL Borderline High Risk: LDL 130-159 MG/DL High Risk: LDL 160-189 MG/DL Very High Risk: LDL Greater than 189 MG/DL 60 PLEASE NOTE NEW REFERENCE RANGES. 61 THERAPEUTIC TARGET FOR THE TREATMENT OF DIABETES MELLITUS PATIENTS IS <7% HBA1C, AND IN SELECTIVE PATIENTS <6.0%. PLEASE REFER TO [place] [employer] DIABETIC CARE GUIDELINES FOR FURTHER INFORMATION. 62 Anion gap measurement may be of limited value in the presence of any alkalosis, especially in a combined acid base disorder. . 63 Note change in reference range as of 04/05/08. The change was based on recommendations from the [place] [employer]. 64 Please note change in reference range effective 08 . 65 A metabolite of Naproxen, O-desmethylnaproxen, has been shown to interfere with the [place]aleb method for measuring total bilirubin. Samples from patients who have taken Naproxen have shown spurious elevation in total bilirubin levels. 66 CHOLESTEROL INTERPRETATION: Desirable: Less than 200 MG/DL Borderline-High Risk: 200-239 MG/DL High-Risk: 240 MG/DL and over 67 HDL INTERPRETATION: Undesirable: High Risk: Less than 40 MG/DL Desirable: Low Risk: Greater than 60 MG/DL 68 LDL INTERPRETATION: Low Risk Optimal Level: LDL Less than 100 MG/DL Near or Above Optimal: LDL 100-129 MG/DL Borderline High Risk: LDL 130-159 MG/DL High Risk: LDL 160-189 MG/DL Very High Risk: LDL Greater than 189 MG/DL 69 New Reference Range and Interpretation effective 05/19/02 TnI (ng/ml) INTERPRETATION <0.06 ng/ml NOT SUPPORTIVE OF DIAGNOSIS OF [place] 0.06 - 0.50 ng/ml INDETERMINATE: SUGGEST SERIAL STUDIES IF CLINICALLY INDICATED. > 0.5 ng/ml CONSISTENT WITH DIAGNOSIS OF [place] . 70 Anion gap measurement may be of limited value in the presence of any alkalosis, especially in a combined acid base disorder. . 71 Note change in reference range as of 04/05/08. The change was based on recommendations from the [place] [employer]. 72 Please note change in reference range effective 08 . 73 PATIENT MAY HAVE RESULTS PER DOCTOR'S AUTHORIZATION. Questions regarding this report should be directed to your doctor. 74 CHOLESTEROL INTERPRETATION: Desirable: Less than 200 MG/DL Borderline-High Risk: 200-239 MG/DL High-Risk: 240 MG/DL and over 75 HDL INTERPRETATION: Undesirable: High Risk: Less than 40 MG/DL Desirable: Low Risk: Greater than 60 MG/DL 76 LDL INTERPRETATION: Low Risk Optimal Level: LDL Less than 100 MG/DL Near or Above Optimal: LDL 100-129 MG/DL Borderline High Risk: LDL 130-159 MG/DL High Risk: LDL 160-189 MG/DL Very High Risk: LDL Greater than 189 MG/DL 77 Anion gap measurement may be of limited value in the presence of any alkalosis, especially in a combined acid base disorder. . 78 Anion gap measurement may be of limited value in the presence of any alkalosis, especially in a combined acid base disorder. . 79 PLEASE NOTE NEW REFERENCE RANGES. 80 Classification: High . 81 Classification: High . 82 CALCULATED LDL APPROXIMATES THE VALUE OF A DIRECT LDL MEASUREMENT. Classification: Borderline High . Procedures Date Code Description Status 01/11/2019 01911 EKG Tracing & Interpretation Completed 08/18/2018 [id number] Bone Mineral Density Test Completed 12/15/2016 67216 Moderate Sedation Services; Same Phys Each Additional Completed 15 Mins 12/15/2016 14688 Moderate Sedation Services; Same Phys Intl 15 Mins; PT Completed >=5 Years 12/15/2016 72072 [id number] Completed 12/15/2016 34170 Revascularization,Endovascular W/Atherectomy, Inc Completed Angioplasty 12/09/2016 39514 Moderate Sedation Services; Same Phys Each Additional Completed 15 Mins 12/09/2016 54551 Moderate Sedation Services; Same Phys Intl 15 Mins; PT Completed >=5 Years 12/09/2016 79887 Revascularization,Endovascular,Transluminal Stent Completed Placement 09/10/2016 [id number] Bone Mineral Density Test Completed 02/04/2016 [id number] Mammogram Completed 12/03/2014 95764 Pulmonary Stress Test Simple Completed 12/03/2014 22144 Plethysmography Determination Lung Volumes & Per Completed Airway Resist 12/03/2014 01082 Diffusing Capacity Completed 06/10/2014 87827 Electroencephalogram EEG Extended Monitoring Over 1 Completed Hour 06/10/2014 40881 ECHO Transthorasic Realtime 2D W Doppler & Color Flow Completed Hosp 06/10/2014 74988 EKG, Interpretation Only Completed 06/09/2014 63157 Endo-Trachial Tube Completed 06/09/2014 00042 Insert Non-Tunneled Venous Catether Completed 06/09/2014 56781 Arterial Line Completed 02/24/2013 [id number] Diabetic Retinal Eye Exam Completed 01/06/2013 [id number] Mammogram Completed 01/05/2012 [id number] Mammogram Completed 04/03/2011 17207 Rad Exam; Hip Unilat Completed 04/03/2011 92192 Rad Exam; Pelvis Completed 03/03/2011 50222 Rad Exam; Hip Unilat Completed 03/03/2011 39363 Rad Exam; Pelvis Completed 02/02/2011 14435 Percutaneous TX Of Femoral FX Completed 10/27/2010 [id number] Mammogram Completed 10/08/2009 [id number] Mammogram Completed 01/08/2009 00955 EKG Tracing & Interpretation Completed 04/06/2001 [id number] Colonoscopy Completed Encounters Type Date Location Provider Dx Diagnosis Office Visit 04/14/2018 [facility] Gustavo Wells, Z00.00 Encntr for 10:20a Medicine - M.D. 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 obstructive [place] pulmonary disease w (acute) exacerbation Office Visit 11/22/2017 11:20a Luis Juarez I73.9 Peripheral Cardiology Of [place], vascular disease, [employer] AT [facility], [facility] unspecified Office Visit 07/05/2017 11:20a Luis Juarez I70.201 Uns athscl [place] Cardiology Of [facility] [place], arteries of [facility] AT [facility], [facility] extremities, right leg Office Visit 01/27/2017 10:15a Luis Juarez I73.9 Peripheral Cardiology Of [place], vascular disease, [employer] AT [facility], [facility] unspecified Office Visit 12/21/2016 10:20a Luis Juarez I73.9 Peripheral Cardiology Yadira Teague MD, vascular disease, [employer] AT [facility], [facility] unspecified Office Visit 12/14/2016 10:20a Luis Juarez I73.9 Peripheral Cardiology Of [place], vascular disease, [facility] AT [facility], [facility] unspecified Office Visit 11/23/2016 10:00a Luis Juarez I73.9 Peripheral Cardiology Of [place], vascular disease, [employer] AT [facility], [facility] unspecified Office Visit 09/16/2016 10:00a Dominik Flannery M81.0 Age-related Lacey Wells M.D. osteoporosis w/o [place] current pathological fracture M54.5 Low back pain I73.9 Peripheral vascular disease, unspecified Office Visit 09/04/2016 10:00a Dominik Flannery M54.5 Low back pain Sandy Gerber N39.3 Stress incontinence (female) (male) I10 Essential (primary) hypertension E03.9 Hypothyroidism, unspecified J44.9 Chronic obstructive pulmonary disease, unspecified I73.9 Peripheral vascular disease, unspecified Office Visit 07/20/2016 10:00a Austin Britta Juarez I73.9 Peripheral Of [employer] [facility] MD Zahida, vascular disease, [facility], [facility] unspecified M54.30 Sciatica, unspecified side Office Visit 04/15/2016 Luis Juarez I73.9 Peripheral vascular 10:40a Cardiology Of MD [place], disease, unspecified [employer] AT [facility], [facility] Office Visit 03/30/2016 [facility] Internal Gustavo Flannery I73.9 Peripheral vascular 11:20a Lacey Wells M.D. disease, unspecified Office Visit 08/05/2015 [facility] Internal Gustavo Flannery L29.9 Pruritus, 10:20a Lacey Wells M.D. unspecified Office Visit 07/29/2015 [facility] Internal Sonu Carter L29.9 Pruritus, 10:40a Medicine [employer] unspecified Office Visit 05/29/2015 [facility] Internal Gustavo Flannery Z01.810 Encounter for 2:00p Lacey Wells M.D. preprocedural cardiovascular examination H26.9 Unspecified cataract I10 Essential (primary) hypertension J44.9 Chronic obstructive pulmonary disease, unspecified E03.9 Hypothyroidism, unspecified L29.9 Pruritus, unspecified Office Visit 12/12/2014 8:15a Pulmonology And Karime 496 COPD [facility] [place] Obstruction [employer] Chronic Not Class Elsewhere 477.9 Rhinitis Allergic Cause Unspec 518.89 Lung Disease Other Not Elsewhere Class Office Visit 07/17/2014 11:00a [facility] 496 COPD [facility] [place] Obstruction [employer] Chronic Not Class Elsewhere 477.9 Rhinitis Allergic Cause Unspec 518.89 Lung Disease Other Not Elsewhere Class Office Visit 06/26/2014 11:20a [facility] Internal Gustavo Flannery 436 Cerebrovascular Lacey Wells M.D. 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 Office Visit 06/19/2014 1:43p [facility] 786.05 Shortness [facility] [place] Breath [facility] 496 COPD Airway Obstruction Chronic Not Class Elsewhere Office Visit 06/19/2014 8:48p [facility] Radha Webb, 496 COPD Airway Assoc,pc DO Obstruction Hospitalists Chronic Not Class Elsewhere 437.2 Hypertensive Encephalopathy 786.05 Shortness Of Breath 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 Withdrawal Hospitalists Delirium 437.2 Hypertensive Encephalopathy 496 COPD Airway Obstruction Chronic Not Class Elsewhere Office Visit 06/16/2014 8:45p [facility] Roc Castillo, 291.0 Alcoholic Assoc,pc M.D. Withdrawal Hospitalists Delirium 437.2 Hypertensive Encephalopathy 496 COPD Airway Obstruction Chronic Not Class Elsewhere Office Visit 06/15/2014 8:43p [facility] Roc Hillno, 496 COPD Airway Assoc,pc M.D. 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 Encephalopathy [facility] 780.01 Coma Office Visit 06/12/2014 8:41p [facility] Roc Castillo, 780.97 Altered Mental Assoc,pc M.D. 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 Status Hospitalists 293.0 Delirium Due To Other Conditions 437.2 Hypertensive Encephalopathy 496 COPD Airway Obstruction Chronic Not Class Elsewhere Office Visit 06/10/2014 [place] Herb Hinojosa 437.2 Hypertensive 1:44p Neurologic Sandy Lou Encephalopathy [facility] 780.01 Coma Office Visit 06/10/2014 8:30p [facility] Tom Chan, 780.97 Altered Mental Assoc,pc D.O. Status Hospitalists 293.0 Delirium Due To Other Conditions 458.9 Hypotension Unspec 786.05 Shortness Of Breath Office Visit 06/09/2014 12:29p [facility] Mee AlanRios 780.97 Altered Mental Assoc,pc Jama, N.P. Status Hospitalists 437.2 Hypertensive Encephalopathy 496 COPD Airway Obstruction Chronic Not Class Elsewhere 244.9 Hypothyroidism Other Unspec Office Visit 06/09/2014 12:28p [facility] Tom Giles, 780.97 Altered Mental Assoc,pc D.O. Status Hospitalists 293.0 Delirium Due To Other Conditions 458.9 Hypotension Unspec 786.05 Shortness Of Breath Office Visit 06/09/2014 [place] Herb Hinojosa 437.2 Hypertensive 1:42p Scott Lou M.D. Encephalopathy [facility] 780.01 Coma Office Visit 05/29/2014 10:40a [facility] Internal Gustavo Rangel.Gabriel Pruritic Lacey Wells M.D. Disorder Unspec 401.9 Hypertension Unspec 300.09 Anxiety States Other v03.82 Streptococcus Pneumoniae Vaccination Spec Other Office Visit 05/14/2014 10:00a [facility] Internal Gustavo Loemli Pruritic Lacey Wells M.D. Disorder Unspec 401.9 Hypertension Unspec Office Visit 05/01/2014 10:40a [facility] Internal Gustavo Lomeli Pruritic Disorder Lacey Wells M.D. 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 Other Office Visit 04/27/2013 1:00p [facility] Internal Gustavo Flannery 465.9 URI Upper Lacey Wells M.D. Respiratory Infections Acute Unspec Sites 496 COPD Airway Obstruction Chronic Not Class Elsewhere Office Visit 02/22/2013 9:20a [facility] Internal Gustavo Flannery V72.81 Examination Lacey Wells M.D. 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 272.0 Hypercholesterolemia Pure 244.9 Hypothyroidism Other Unspec Office Visit 12/12/2012 10:00a [facility] Internal Gustavo Flannery 401.9 Hypertension Unspec Lacey Wells M.D. 496 COPD Airway Obstruction Chronic Not Class Elsewhere 244.9 Hypothyroidism Other Unspec 272.0 Hypercholesterolemia Pure Office Visit 09/08/2012 9:40a [facility] Internal Gustavo Flannery 466.0 Bronchitis Acute Lacey Wells M.D. 401.9 Hypertension Unspec Office Visit 05/23/2012 10:00a [facility] Internal Gustavo Flannery 401.9 Hypertension Unspec Lacey Wells M.D. 496 COPD Airway Obstruction Chronic Not Class Elsewhere V04.81 Need For Prophylactic Vaccination & Inoculation/Influenza Office Visit 04/15/2012 1:00p [facility] Internal Alysha Francisco, 466.0 Bronchitis Acute Medicine N.PRios 496 COPD Airway Obstruction Chronic Not Class Elsewhere Office Visit 04/11/2012 3:20p [facility] Internal Gustavo Flannery 466.0 Bronchitis Acute Lacey Wells M.D. Office Visit 03/29/2012 10:20a [facility] Internal Gustavo Flannery 491.21 Bronchitis Lacey Wells M.D. Obstructive Chronic W/Acute Exacerbation Office Visit 12/09/2011 10:00a [facility] Internal Gustavo Flannery 401.9 Hypertension Unspec Medicine Sandy Wells 244.9 Hypothyroidism Other Unspec 493.90 Asthma Unspec W/O Status Asthmaticus 272.0 Hypercholesterolemia Pure Office Visit 11/11/2011 [facility] [place] 491.21 Bronchitis 11:00a Medicine Eyad N.P. 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 Office Visit 03/06/2011 DO Not Use [employer] Alysha 244.9 Hypothyroidism Other 9:30a AT [facility] Nolan, N.P. Unspec 492.8 Emphysema Other 401.9 Hypertension Unspec V72.81 Examination Preoperative Cardiovascular 493.90 Asthma Unspec W/O Status Asthmaticus 272.0 Hypercholesterolemia Pure 272.2 Hyperlipidemia Mixed Office Visit 02/02/2011 Orthopedic Gigi 820.8 FX Unspec Part Of 4:00p [facility] Of [place] Of Femur Closed C.M.A. Office Visit 12/19/2010 DO Not Use [employer] Gustavo Flannery V72.81 Examination 9:40a AT Erasmo Wells M.D. Preoperative Cardiovascular 401.1 Hypertension Benign 244.9 Hypothyroidism Other Unspec 493.90 Asthma Unspec W/O Status Asthmaticus 790.21 Impaired Fasting Glucose 272.0 Hypercholesterolemia Pure Office Visit 09/17/2010 10:00a DO Not Use [employer] Gustavo Flannery 401.1 Hypertension Benign AT Erasmo Wells M.D. 244.9 Hypothyroidism Other Unspec 493.90 Asthma Unspec W/O Status Asthmaticus 272.0 Hypercholesterolemia Pure 790.21 Impaired Fasting Glucose Office Visit 02/18/2010 9:20a DO Not Use [employer] Gustavo Flannery 401.1 Hypertension Benign AT Erasmo Wells M.D. 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 466.0 Bronchitis Acute AT [place] M.[place]. 493.90 Asthma Unspec W/O Status Asthmaticus Office Visit 10/09/2009 11:30a DO Not Use [employer] Gustavo E. 493.90 Asthma Unspec W/O AT [place] M.D. Status Asthmaticus Office Visit 08/23/2009 11:20a DO Not Use [employer] Gustavo E. 401.1 Hypertension Benign AT [place] M.D. 493.90 Asthma Unspec W/O Status Asthmaticus 244.9 Hypothyroidism Other Unspec V04.81 Need For Prophylactic Vaccination & Inoculation/Influenza Office Visit 02/13/2009 [facility] Gustavo E. 401.1 Hypertension Benign 10:15a Assoc AT Sandy Wells [facility] Office Visit 01/08/2009 [place] [facility] Gustavo E. 272.0 Hypercholesterolemia Pure 9:00a Assoc AT Sandy Wells [facility] 493.90 Asthma Unspec W/O Status Asthmaticus 244.9 Hypothyroidism Other Unspec 401.1 Hypertension Benign Office Visit 07/09/2008 10:00a [place] [facility] Gustavo E. 493.90 Asthma Unspec W /O Assoc AT Sandy Wells Status Asthmaticus [facility] 401.1 Hypertension Benign Office Visit 05/11/2008 9:30a [place] [facility] Gustavo E. 493.90 Asthma Unspec W /O Assoc AT Sandy Wells Status Asthmaticus [facility] V04.81 Need For Prophylactic Vaccination & Inoculation/Influenza Office Visit 04/17/2008 9:30a [facility] Assoc Gustavo E. 466.0 Bronchitis Acute AT [facility] [place] 493.9 Asthma Unspecified Office Visit 01/03/2008 [facility] Gustavo E. 272.0 Hypercholesterolemia Pure 9:30a Assoc AT Sandy Wells [facility] 401.1 Hypertension Benign 300.09 Anxiety States Other V06.5 Tetanus Diphtheria (DT) Office Visit 11/08/2007 [facility] Gustavo E. 466.0 Bronchitis Acute 11:45a Assoc AT Sandy Wells [facility] Office Visit 11/03/2007 [place] [facility] Gustavo E. 466.0 Bronchitis Acute 9:30a Assoc AT Sandy Wells [facility] Office Visit 07/12/2007 [facility] Gustavo E. 272.0 Hypercholesterolemia Pure 10:15a Assoc AT Sandy Wells [facility] 401.1 Hypertension Benign Office Visit 03/15/2007 11:00a [place]ama Flannery 465.9 URI Upper Assoc AT Sandy Wells Respiratory [facility] Infections Acute Unspec Sites 401.1 Hypertension Benign Plan of Treatment Future Appointment(s):01/12/2019 8:50 am - Shannan Montes M.D. at [facility] Internal Scfnbino65/04/2019 9:20 am - Gustavo Wells M.D. at [facility] Internal Ghdsbaem57/29/2019 - Lazaro Duvall M.D.I10 Essential (primary) hypertensionFollow up:1 yearI77.1 Stricture of artery
[2019-01-19 09:41] VITALS: BP 135/57
--- NOTE | 2019-01-19 10:53 | UC ---
General HPI - HPI Summary HPI Summary: 83-year-old female with history of COPD presents with persistent cough 10 days. She states that she recently completed a seven-day course of doxycycline. She denies any fever or productivity of her cough. She is otherwise feeling well but has this dry, persistent cough. - History of Current Complaint Chief Complaint: UCRespiratory Stated Complaint: COUGH Hx Obtained From: Patient, Family/[employer]ley [employer] Hx Last Menstrual Period: post menopaus Pain Intensity: 1 - Allergy/Home Medications Allergies/Adverse Reactions: Allergies Allergy/AdvReac Type Severity Reaction Status Date / Time No Known Allergies Allergy Verified 01/19/19 09:41 PMH/Surg Hx/FS Hx/Imm Hx Previously Healthy: No Respiratory History: COPD - Surgical History Surgical History: Yes Surgery Procedure, Year, and Place: hysterectomy,fx right hip REPLACEMENT 2010. baloon angioplasty in November; I and D December 15 - Family History Known Family History: Positive: Cardiac Disease, Hypertension - Social History Lives: With Family Alcohol Use: Weekly Alcohol Amount: 2-3 DRINKS/WEEK Substance Use Type: None Smoking Status (MU): Former Smoker Type: Cigarettes Amount Used/How Often: 1PPD 40 + YEARS Have You Smoked in the Last Year: No When Did the Patient Quit Smoking/Using Tobacco: 1998 - Immunization History Most Recent Influenza Vaccination: 05/02 Most Recent Tetanus Shot: unknown Most Recent Pneumonia Vaccination: 2013 Review of Systems All Other Systems Reviewed And Are Negative: Yes Constitutional: Negative: Fever Skin: Negative: Rash Respiratory: Positive: Cough. Negative: Shortness Of Breath Cardiovascular: Positive: Negative Gastrointestinal: Positive: Negative Musculoskeletal: Positive: Negative Physical Exam Triage Information Reviewed: Yes Appearance: Well-Appearing, No Pain Distress, Well-Nourished Vital Signs: Initial Vital Signs Temp 98 F 01/19/19 09:38 Pulse 72 01/19/19 09:38 Resp 15 01/19/19 09:38 BP 135/57 01/19/19 09:38 Pulse Ox 100 01/19/19 09:38 Vital Signs Reviewed: Yes Eyes: Positive: Conjunctiva Clear ENT: Positive: Hearing grossly normal. Negative: Nasal congestion Neck: Positive: Nontender Respiratory: Positive: Lungs clear, Normal breath sounds, No respiratory distress, No accessory muscle use Cardiovascular: Positive: RRR Abdomen Description: Positive: Nontender Musculoskeletal: Positive: Strength Intact Neurological: Positive: Alert Psychological: Positive: Normal Response To Family Skin Exam: Normal Diagnostics - Radiology CXR Radiology Interpretation Completed By: Radiologist Summary of Radiographic Findings: REPORT: Unchanged small calcified granuloma at the RIGHT upper lung zone. Elevated lung. volumes and both diffuse mild prominence of the interstitial markings and patchy. rarefaction of the mid to upper lung zone interstitial markings. No suspicious focal. pulmonary lesion, compelling alveolar consolidation, pleural effusion, pneumothorax. The. heart, pulmonary vasculature, and mediastinal contours are unremarkable. IMPRESSION: #. Gross resolution of previous RIGHT basilar infiltrate. #. Stigmata of obstructive lung disease and previous granulomatous disease. No acute. pulmonary or cardiac process evident. Course/Dx - Course Course Of Treatment: Resolution of infiltrate on x-ray. Likely minor COPD exacerbation. No wheezing. Comfortable. Short course of steroid and every 4 hour nebulizer/ inhaler. - Differential Dx - Multi-Symptom Differential Diagnoses: Other - Pneumonia, COPD, medication induced - Diagnoses Provider Diagnosis: COPD with acute exacerbation Discharge - Sign-Out/Discharge Documenting (check all that apply): Patient Departure All imaging exams completed and their final reports reviewed: Yes - Discharge Plan Condition: Improved Disposition: HOME Prescriptions: Benzonatate CAP* [Tessalon 100 MG CAP*] 100 mg PO TID PRN #20 cap PRN Reason: Cough predniSONE TAB* [Deltasone 20 MG TAB*] 40 mg PO DAILY #10 tab Patient Education Materials: COPD (Chronic Obstructive Pulmonary Disease) (ED) Referrals: Gustavo Wells MD [Primary Care Provider] - Additional Instructions: Use your inhaler or nebulizer 4 times a day until cough resolves. Return with fever, difficulty breathing, worse, new symptoms or other concerns. Call today to schedule follow-up with your doctor. - Billing Disposition and Condition Condition: IMPROVED Disposition: Home
== END 2019-01-19 10:40 | disposition home or self-care (01) ==
LOC: UCEAST 09:28
DX: J44.1 Chronic obstructive pulmonary disease with (acute) exacerbation (principal); Z87.891 Personal history of nicotine dependence
CPT/HCPCS: 71046; 99212; G0463

== ENCOUNTER → 2019-01-24 21:10 | Emergency (ER) | payer MEDICARE ==
[~2019-01-24 21:10] MED LIST: Cephalexin CAP* 500 MG PO ONE; Lidocaine 1% MPF* 2 ML VIAL INJ ONE; Lidocaine 1%* 5 ML VIAL INJ ONE; Tetan/Diph/Pertus SYR(Tdap)* 0.5 ML SYR(BOOSTRIX) use SYR IM ONE
--- NOTE | 2019-01-24 22:18 | ED ---
Laceration/Wound HPI - HPI Summary HPI Summary: Patient complains of mechanical fall with subsequent laceration to right knee. Denies any other pain injury or symptoms. Patient is ambulatory. - History of Current Complaint Stated Complaint: RIGHT KNEE LACERATION PER EMS Time Seen by Provider: 01/24/19 21:17 Hx Obtained From: Patient Hx Last Menstrual Period: post menopaus Onset/Duration: Lasting Hours Aggravating: Nothing Alleviating: Nothing Current Severity: None Pain Intensity: 0 Pain Scale Used: 0-10 Numeric Associated Signs & Symptoms: Negative - Allergy/Home Medications Allergies/Adverse Reactions: Allergies Allergy/AdvReac Type Severity Reaction Status Date / Time No Known Allergies Allergy Verified 01/19/19 09:41 Home Medications: Home Medications Alendronate Sodium 70 mg PO DAILY 01/24/19 [History Confirmed 01/24/19] Atorvastatin* [Lipitor 40 MG*] 40 mg PO DAILY 01/24/19 [History Confirmed ] PMH/Surg Hx/FS Hx/Imm Hx Endocrine/Hematology History: Reports: Hx Thyroid Disease Denies: Hx Diabetes Cardiovascular History: Reports: Hx Angina, Hx Hypertension, 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 Denies: Hx Pacemaker/ICD Comment Only: Other Cardiovascular Problems/Disorders - hyperlipidemia Respiratory History: Reports: Hx Asthma, Hx Chronic Obstructive Pulmonary Disease (COPD) - emphysema GI History: Denies: Hx Ulcer History: Denies: Hx Renal Disease Musculoskeletal History: Reports: Hx Osteoporosis Sensory History: Reports: Hx Cataracts - BILATERAL, Hx Contacts or Glasses - GLASSES Denies: Hx Hearing Aid Opthamlomology History: Reports: Hx Cataracts - BILATERAL, Hx Contacts or Glasses - GLASSES EENT History: Denies: Hx Deafness Neurological History: Denies: Hx Dementia Psychiatric History: Denies: Hx Panic Disorder - Cancer History Hx Chemotherapy: No Hx Radiation Therapy: No - Surgical History Surgery Procedure, Year, and Place: hysterectomy,fx right hip REPLACEMENT 2010. baloon angioplasty in November; I and D December 15 Hx Anesthesia Reactions: No - Immunization History Date of Tetanus Vaccine: pt unable to state Date of Influenza Vaccine: pt unable to state Infectious Disease History: No Infectious Disease History: Reports: Hx Shingles Denies: Hx Clostridium Difficile, Hx Hepatitis, Hx Human Immunodeficiency Virus (HIV), Hx of Known/Suspected MRSA, Hx Tuberculosis, Hx Known/Suspected VRE , Hx Known/Suspected VRSA, History Other Infectious Disease, Traveled Outside the [place] in Last 30 Days - Family History Known Family History: Positive: Cardiac Disease, Hypertension - Social History Alcohol Use: Weekly Alcohol Amount: 2-3 DRINKS/WEEK Substance Use Type: Reports: None Smoking Status (MU): Former Smoker Type: Cigarettes Amount Used/How Often: 1PPD 40 + YEARS Have You Smoked in the Last Year: No Review of Systems Constitutional: Negative Eyes: Negative ENT: Negative Cardiovascular: Negative Respiratory: Negative Gastrointestinal: Negative Genitourinary: Negative Musculoskeletal: Negative Skin: Other Neurological: Negative Psychological: Normal All Other Systems Reviewed And Are Negative: Yes Physical Exam - Summary Physical Exam Summary: Laceration over right knee. Full range of motion of right knee. No erythema, ecchymosis, deformity, swelling noted. Patient moves bilateral upper and bilateral lower extremities freely without indication of pain. No trauma noted to face, mouth, head. No pain with palpation of neck, back, chest wall, abdomen. Triage Information Reviewed: Yes Vital Signs On Initial Exam: Initial Vitals Temp Pulse Resp BP Pulse Ox 98.7 F 70 22 163/72 95 01/24/19 21:14 01/24/19 21:14 01/24/19 21:14 01/24/19 21:14 01/24/19 21:14 Vital Signs Reviewed: Yes Appearance: Positive: Well-Appearing Skin: Positive: Warm Head/Face: Positive: Normal Head/Face Inspection Eyes: Positive: Normal ENT: Positive: Normal ENT inspection Neck: Positive: Supple Respiratory/Lung Sounds: Positive: Clear to Auscultation Cardiovascular: Positive: Normal Abdomen Description: Positive: Nontender Musculoskeletal: Positive: Normal Neurological: Positive: Normal Psychiatric: Positive: Normal AVPU Assessment: Alert - Abigail Coma Scale Best Eye Response: 4 - Spontaneous Best Motor Response: 6 - Obeys Commands Best Verbal Response: 5 - Oriented Coma Scale Total: 15 Procedures - Laceration/Wound Repair 1 Location: lower extremity Description: Linear Anesthesia: Local, 1.0% Length, Depth and Shape: 12 cm x .5cm Betadine Prep?: Yes Irrigated w/ Saline (ccs): 500 Laceration/Wound Explored: clean Debridement: minimal Number of Sutures: 21 - 4.0 ethilon Layer Closure?: No Sterile Dressing Applied?: No Diagnostics - Vital Signs Vital Signs Temp Pulse Resp BP Pulse Ox 01/24/19 21:14 98.7 F 70 22 163/72 95 - Laboratory Lab Statement: Any lab studies that have been ordered have been reviewed, and results considered in the medical decision making process. Laceration Repair Course/Dx - Course Course Of Treatment: Patient complains of mechanical fall with subsequent laceration to right knee. Denies any other pain injury or symptoms. Patient is ambulatory. Physical exam:Laceration over right knee. Full range of motion of right knee. No erythema, ecchymosis, deformity, swelling noted. Patient moves bilateral upper and bilateral lower extremities freely without indication of pain. No trauma noted to face, mouth, head. No pain with palpation of neck , back, chest wall, abdomen. Vital signs within normal limits. No anti-coag. Laceration cleaned and repaired. Rx for Keflex. Tetanus booster. - Clinical Impression Provider Diagnoses: Fall, Laceration Discharge - Sign-Out/Discharge Documenting (check all that apply): Patient Departure Patient Received Moderate/Deep Sedation with Procedure: No - Discharge Plan Condition: Stable Disposition: HOME Prescriptions: Cephalexin CAP* [Keflex CAP*] 500 mg PO TID 5 Days #15 cap Patient Education Materials: Care For Your Stitches (ED), Laceration (ED) Referrals: Gustavo Wells MD [Primary Care Provider] - Additional Instructions: Sutures out in 10 days. Take antibiotics as directed. Starting tomorrow you may shower with warm running water and soap. Keep wound clean and dry and protected when not washing. Do not submerge underwater as in swimming or bathing. Return to the ED for any new or worsening symptoms - Billing Disposition and Condition Condition: STABLE Disposition: Home
[2019-01-24 22:42] VITALS: BP 114/64
== END | disposition home or self-care (01) ==
LOC: ED 21:10
DX: S81.011A Laceration without foreign body, right knee, initial encounter (principal); W19.XXXA Unspecified fall, initial encounter; Y92.9 Unspecified place or not applicable; Z23 Encounter for immunization; J44.9 Chronic obstructive pulmonary disease, unspecified; M81.0 Age-related osteoporosis without current pathological fracture; Z96.641 Presence of right artificial hip joint; Z87.891 Personal history of nicotine dependence
CPT/HCPCS: 12004; 90471; 90715; 99283; A9270-GY

== ENCOUNTER 2019-01-31 07:53 | Emergency (ER) | payer MEDICARE ==
[2019-01-31 08:05] VITALS: BP 130/57
[2019-01-31] MEDS ORDERED: Mupirocin 2% OINT* TUBE TOPICAL ONE (08:30)
--- NOTE | 2019-01-31 08:30 | UC ---
UC General HPI - HPI Summary HPI Summary: Right knee injury - follow up wound check. Fell during the night on 01/24 and had several sutures placed in the ER. Was also given a script for Keflex and has since completed it. Was more active and on her feet two days ago. Yesterday seemed to be more bothersome but still over getting better. COncerned about the blister that formed under the sutures. No joint pain. NO fevers. CHronic cough. Otherwise well. Getting around ok. No further falls since last fall. Meds reviewed Regarding cough Constant clear productive cough. Constantly clearing her throat. Not sure if she has allergies. Has been on antibiotics and tessalon pearls with no significant improvement. No fevers. NO SOB - History of Current Complaint Chief Complaint: UCLaceration Stated Complaint: WOUND CHECK Time Seen by Provider: 01/31/19 08:13 Hx Last Menstrual Period: post menopaus Pain Intensity: 5 - Allergy/Home Medications Allergies/Adverse Reactions: Allergies Allergy/AdvReac Type Severity Reaction Status Date / Time No Known Allergies Allergy Verified 01/31/19 08:05 PMH/Surg Hx/FS Hx/Imm Hx Previously Healthy: Yes Endocrine History: Thyroid Disease Cardiovascular History: Hypertension Respiratory History: COPD - Surgical History Surgical History: Yes Surgery Procedure, Year, and Place: hysterectomy,fx right hip REPLACEMENT 2010. baloon angioplasty in November; I and D December 15 - Family History Known Family History: Positive: Cardiac Disease, Hypertension - Social History Alcohol Use: Weekly Alcohol Amount: 2-3 DRINKS/WEEK Substance Use Type: None Smoking Status (MU): Former Smoker Type: Cigarettes Amount Used/How Often: 1PPD 40 + YEARS Have You Smoked in the Last Year: No When Did the Patient Quit Smoking/Using Tobacco: 1998 - Immunization History Most Recent Influenza Vaccination: 05/02 Most Recent Tetanus Shot: unknown Most Recent Pneumonia Vaccination: 2013 Review of Systems All Other Systems Reviewed And Are Negative: Yes Constitutional: Positive: Negative Physical Exam Triage Information Reviewed: Yes Appearance: Well-Appearing Vital Signs: Initial Vital Signs Temp 98 F 01/31/19 08:00 Pulse 73 01/31/19 08:00 Resp 18 01/31/19 08:00 BP 130/57 01/31/19 08:00 Pulse Ox 9 01/31/19 08:00 ENT: Positive: Normal ENT inspection Neck: Positive: Supple Respiratory: Positive: Other: - diminished breath sounds. No W/R/R Musculoskeletal: Positive: Other: - Right lower ext - several sutures inferior to knee joint. No erythema, or drainage around sutures. Ecchymosis and serosanginous blister inferior to suture. FROM of knee joint without pain. Course/Dx - Course Course Of Treatment: This is an 83 yr old with F/U of wound/sutures Does not appear infected Likely overdid it causing some more swelling and blister Cough - Could be postnasal drip - related to allergies Recommend Keep area covered and wrapped while active Continue to wash area with soap and water ANtibiotic ointment 2xday, use xerofoam dressing on it daily Elevate leg when able to If redness, swelling or drainage appears, recommend return to urgent care Follow up at urgent care in 3 days - sooner if wound is looking worse - more blisters, darkened skin and skin breakdown - Diagnoses Provider Diagnosis: Suture check, Cough Discharge - Sign-Out/Discharge Documenting (check all that apply): Patient Departure All imaging exams completed and their final reports reviewed: No Studies - Discharge Plan Condition: Fair Disposition: HOME Prescriptions: Fluticasone NASAL SPRAY 50MCG* [Flonase NASAL SPRAY 50MCG*] 2 spray BOTH NARES DAILY #1 btl Referrals: Gustavo Wells MD [Primary Care Provider] - Additional Instructions: Keep area covered and wrapped while active Continue to wash area with soap and water ANtibiotic ointment 2xday, use xerofoam dressing on it daily Elevate leg when able to If redness, swelling or drainage appears, recommend return to urgent care Follow up at urgent care in 3 days - sooner if wound is looking worse - more blisters, darkened skin and skin breakdown For cough recommend flonase nasal spray as directed Could also try allergy medication such as zyrtec or larry - Billing Disposition and Condition Condition: FAIR Disposition: Home
== END 2019-01-31 09:09 | disposition home or self-care (01) ==
LOC: UCEAST 07:53
DX: S81.011D Laceration without foreign body, right knee, subsequent encounter (principal); W18.30XD Fall on same level, unspecified, subsequent encounter; R05 Cough; E07.9 Disorder of thyroid, unspecified; I10 Essential (primary) hypertension; J44.9 Chronic obstructive pulmonary disease, unspecified; Z87.891 Personal history of nicotine dependence
CPT/HCPCS: 99212; G0463

== ENCOUNTER 2019-02-06 08:19 | Emergency (ER) | payer MEDICARE ==
[2019-02-06 08:31] VITALS: BP 169/72
--- NOTE | 2019-02-06 08:42 | UC ---
HPI Wound/Suture Re-check - HPI Summary HPI Summary: 12 cm laceration with intact interrupted sutures to left anterior knee. There are several areas to the lateral aspect of the laceration that do not appear to have fully healed. There are also 2 small lacerations below the above laceration with single interrupted sutures intact. There is ecchymosis below the laceration with some ruptured bulla without drainage. Patient also has erythema and mild edema to the anterior left lower leg with increased warmth. - History Of Current Complaint Stated Complaint: SUTURE REMOVAL Time Seen by Provider: 02/06/19 08:22 Hx Obtained From: Patient Hx Last Menstrual Period: post menopaus Pain Intensity: 0 - Allergies/Home Medications Allergies/Adverse Reactions: Allergies Allergy/AdvReac Type Severity Reaction Status Date / Time No Known Allergies Allergy Verified 02/06/19 08:35 PMH/Surg Hx/FS Hx/Imm Hx Cardiovascular History: Hypertension Respiratory History: COPD - Surgical History Surgical History: Yes Surgery Procedure, Year, and Place: hysterectomy,fx right hip REPLACEMENT 2010. baloon angioplasty in November; I and D December 15. [email or web address] right knee - Family History Known Family History: Positive: Cardiac Disease, Hypertension - Social History Occupation: Retired Lives: With Family Alcohol Use: Weekly Alcohol Amount: 2-3 DRINKS/WEEK Substance Use Type: None Smoking Status (MU): Former Smoker Type: Cigarettes Amount Used/How Often: 1PPD 40 + YEARS Have You Smoked in the Last Year: No When Did the Patient Quit Smoking/Using Tobacco: 1998 - Immunization History Most Recent Influenza Vaccination: 05/02 Most Recent Tetanus Shot: 2018 Most Recent Pneumonia Vaccination: 2013 Review of Systems All Other Systems Reviewed And Are Negative: Yes Constitutional: Negative: Fever, Chills Skin: Positive: Other - See HPI Respiratory: Positive: Negative Cardiovascular: Positive: Negative Gastrointestinal: Positive: Negative Genitourinary: Positive: Negative Motor: Negative: Weakness Neurovascular: Negative: Decreased Sensation Musculoskeletal: Negative: Arthralgia, Calf Tenderness, Decreased ROM Neurological: Positive: Negative Is Patient Immunocompromised?: No Physical Exam - Summary Physical Exam Summary: GENERAL APPEARANCE: Well developed, well nourished, alert and cooperative, and appears to be in no acute distress. CARDIAC: Normal S1 and S2. No S3, S4 or murmurs. Rhythm is regular. There is no peripheral edema, cyanosis or pallor. Extremities are warm and well perfused. Capillary refill is less than 2 seconds. Peripheral pulses intact. LUNGS: Clear to auscultation without rales, rhonchi, wheezing or diminished breath sounds. ABDOMEN: Positive bowel sounds. Soft, nondistended, nontender. No guarding or rebound. No masses or hepatosplenomegally. MUSKULOSKELETAL: ROM intact to left knee. No joint tenderness. Normal muscular development. Normal gait. Calf supple and non-tender. SKIN: 12 cm laceration with intact interrupted sutures to left anterior knee. There are several areas to the lateral aspect of the laceration that do not appear to have fully healed. There are also 2 small lacerations below the above laceration with single interrupted sutures intact. There is ecchymosis below the laceration with some ruptured bulla without drainage. Patient also has erythema and mild edema to the anterior left lower leg with increased warmth. Triage Information Reviewed: Yes Vital Signs: Initial Vital Signs Temp 98.4 F 02/06/19 08:26 Pulse 72 02/06/19 08:26 Resp 19 02/06/19 08:26 BP 169/72 02/06/19 08:26 Pulse Ox 93 02/06/19 08:26 Vital Signs Reviewed: Yes Course/Dx - Course Course Of Treatment: 83-year-old female presents for suture removal. Patient was initially seen in the emergency room on 01/24/2019 for a laceration to her anterior left knee after accidentally tripping and falling. The wound was cleansed and repaired with interrupted sutures, her tetanus was updated, and she was started on a course of cephalexin which she states she completed. Patient was subsequently seen at this facility on 01/31/2019 for a wound check. She had developed some blisters that need some of the sutures but there was no concern for infection at that time. Patient states that she has some tenderness and redness to the anterior aspect of her left knee and lower leg. Denies any fevers, chills, joint pain, numbness, or tingling. Afebrile. Hypertensive otherwise vital signs stable. Patient had 12 cm laceration with intact interrupted sutures to left anterior knee. There are several areas to the lateral aspect of the laceration that do not appear to have fully healed. There are also 2 small lacerations below the above laceration with single interrupted sutures intact. There is ecchymosis below the laceration with some ruptured bulla without drainage. Patient also has erythema and mild edema to the anterior left lower leg with increased warmth. She had full painless range of motion to the knee, calf was supple and nontender. I discussed with the patient that I have some concerns that there is some infection present left the wound has not fully healed completely therefore the decision was made to leave the sutures intact at this time, start her on an antibiotic to treat the infection, and have her follow-up in the wound care clinic in 2 days for a recheck of her wound. I will start her on doxycycline 100 mg twice a day 10 days. I was able to get her scheduled for an appointment on 02/08/2019 at 12:45 PM. I strongly reinforced to the patient that if her symptoms continue to worsen while on antibiotics that she should be evaluated in the emergency room sooner. Anticipatory guidance and warning symptoms were reviewed with the patient. Verbalizes understanding and agrees with plan of care. - Differential Dx - Laceration/Wound Differential Diagnoses: Cellulitis, Dehiscence, Healing Wound, Joint Infection, Suture Removal - Diagnosis Provider Diagnosis: Laceration of left knee with complication Discharge - Sign-Out/Discharge Documenting (check all that apply): Patient Departure All imaging exams completed and their final reports reviewed: No Studies - Discharge Plan Condition: Stable Disposition: HOME Prescriptions: Doxycycline Hyclate 100 mg PO BID #20 tablet Patient Education Materials: Wound Infection (ED) Referrals: Gustavo Wells MD [Primary Care Provider] - Additional Instructions: Your laceration to the knee appears to be infected and portions of the wound did not appear to be fully healed. We will leave the sutures in place at this time and start she was on another antibiotic to treat the infection. Start doxycycline 100 mg twice a day 10 days. Do not consume any calcium supplements or milk products for 2 hours before after taking this medication as it can affect the absorption of the antibiotic. Avoid sun exposure or take appropriate precautions. Taking this medication as it will make him more sensitive to the sun and she will burn more easily. Follow-up in the wound care clinic on 02/08/2019 at 12:45 pm for a recheck of your wound and further treatment. Call if you need to reschedule the appoint. Seek immediate medical attention in the emergency room if you develop a fever greater than 100.5 F, the redness continues to spread, you have swelling of the leg, increased pain, or any worsening of symptoms. - Billing Disposition and Condition Condition: STABLE Disposition: Home
== END 2019-02-06 08:53 | disposition home or self-care (01) ==
LOC: UCEAST 08:19
DX: S81.012D Laceration without foreign body, left knee, subsequent encounter (principal); X58.XXXD Exposure to other specified factors, subsequent encounter; I10 Essential (primary) hypertension; J44.9 Chronic obstructive pulmonary disease, unspecified; Z87.891 Personal history of nicotine dependence
CPT/HCPCS: 99212; G0463

== ENCOUNTER 2021-12-12 13:37 | Observation (INO) ==
[2021-12-12] MEDS ORDERED: Dexamethasone IV 4 MG/ML VIAL 1 ml VIAL IV SLOW PU ONE (14:19)
[2021-12-12] MEDS ORDERED: Lactated Ringers 1000 ml BAG 1,000 ML IV ONE (14:19)
[2021-12-12] MEDS ORDERED: Albuterol/Ipratropium NEB.SOL (2.5/0.5 MG) 3 ML NEB.SOLN INH ONE (14:20)
[2021-12-12 14:21] LABS: ABS Eosinophils 0.1 10^3/ul (0-0.6); ABS Lymphocytes 0.9 10^3/ul (1.0-4.8); ABS Monocytes 0.8 10^3/ul (0-0.8); ABS Neutrophils 6.4 10^3/ul (1.5-7.7); Eosinophil % 0.9 %; Hematocrit 39 % (35-47); Hemoglobin 12.9 g/dL (12.0-16.0); Lymphocyte % 11.3 %; Mean Corpuscular HGB Conc 34 g/dL (31-36); Mean Corpuscular Hemoglobin 33 pg (27-31); Mean Corpuscular Volume 97 fL (80-97); Mean Platelet Volume 6.9 fL (7.4-10.4); Platelet Count 291 10^3/uL (150-450); Red Blood Count 3.96 10^6 /uL (3.70-4.87); Red Cell Distribution Width 14 % (10-15); White Blood Count 8.3 10^3/uL (3.5-10.8)
[2021-12-12] MEDS ORDERED: Magnesium Sulfate IV 1GM/100ML 1 GM/100 ML BAG IV ONE (14:23)
[2021-12-12 15:05] LABS: Albumin 3.7 g/dL (3.2-5.2); Albumin/Globulin Ratio 1.7 (1-3); Calcium 8.7 mg/dL (8.6-10.3); Globulin 2.2 g/dL (2-4); Magnesium 1.7 mg/dL (1.9-2.7); Potassium 4.2 mmol/L (3.5-5.0); Total Bilirubin 0.6 mg/dL (0.2-1.0); Total Protein 5.9 g/dL (6.4-8.9); eGFR CKD-EPI 56.2 (>60)
[2021-12-12 15:46] LABS: High Sensitivity Troponin 1 Hr 6 pg/mL (<15)
[2021-12-12] MEDS ORDERED: Azithromycin 500 mg/250 ml NS 500 MG/250 ML BAG IVPB SCH (18:00)
[2021-12-12] MEDS ORDERED: Albuterol HFA INHALER 8 gm MDI INH SCH (19:00)
[2021-12-12] MEDS: Albuterol/Ipratropium NEB.SOL (2.5/0.5 MG) 3 ML NEB.SOLN INH SCH (20:18)
[2021-12-12] MEDS: Mometasone/Formoter 200/5 MDI INH SCH (20:39)
[2021-12-12] MEDS ORDERED: Enoxaparin 40 MG/0.4 ML SYR SUBCUT SCH (22:00)
[2021-12-12] MEDS: methylPREDNISolone SOD SUCC 40 mg/ml 1 ml VIAL IV SCH (22:21)
[2021-12-13] MEDS: Albuterol/Ipratropium NEB.SOL (2.5/0.5 MG) 3 ML NEB.SOLN INH SCH ×3 (07:27→16:40)
[2021-12-13] MEDS: Mometasone/Formoter 200/5 MDI INH SCH (07:30)
[2021-12-13] MEDS: methylPREDNISolone SOD SUCC 40 mg/ml 1 ml VIAL IV SCH (08:53)
[2021-12-13] MEDS ORDERED: NON FORMULARY MED (Tiotropium Bromide [Spiriva With Handihaler] 18 mcg capsule, w/inhalati INH SCH (09:00)
[2021-12-13 15:51] VITALS: BP 123/44
== END 2021-12-13 16:45 | disposition home or self-care (01) ==
LOC: ED 13:37 → EDHOLD 13:37 → MED 20:05
PROVIDERS: ADMIT Hospitalist; ATTEND Hospitalist